=== PATIENT | female | born 1965 | race Caucasian/White ===

== ENCOUNTER 2025-05-09 15:14 | Outpatient (AMB) | payer MEDICARE, MEDICAID, SELFPAY ==
--- OUTSIDE RECORDS SUMMARY | 2021-02-22 11:20 | XMS_ITS | Continuity of Care Document ---
Author Organization [facility] Address [address] [address] Phone Care Team Providers Care Cutting And Splicing Supervisor Name Role Phone Leesa MCCULLOUGH, HANSEL, Jena Unavailable Unavail able Advance Directives Directive Yes / No Effective Date File Name No Information Encounters Encounter Description Practice Location Reason(s) For Visit Diagnoses Date Provider [facility], [address] [address], [place], [place], [id number], [place] tel:[phone] [facility] No Information [address] [place], [address]. tel:[phone] Family History Family Member Type Diagnosis Age At Onset No Information Payers Payer name Insurance type Covered republican ID Authoriza tion(s) No Information Social History Type Description Quantity Date Captured Comments Sex Female Smoking Status No Information Chief Complaint And Reason For Visit No Information History Of Present Illness Encounter Date Complaint History Of Prese nt Illness No Information Instructions Date Instruction Additional Infor mation No Information Assessments Type Assessment Date No Information
--- OUTSIDE RECORDS SUMMARY | 2025-05-05 14:00 | XMS_ITS | Encounter Summary ---
Author Organization [facility] Address [address] [place] [address] Care Team Providers Care Revenue Specialist Name Role Phone Salma Naik MD Primary Care Provider [phone] Reason for Referral * Imaging (Routine) - Authorized Specialty Diagnoses / Procedures Referred By Contac t Referred To Contact Radiology Diagnoses Lung nodules Enlargement of lymph node Procedures CT Chest w Contrast Loly Duggan MD Phone: tel: fax: [address] Phone: tel: Referral ID Status Reason Start Date Expiration Date V isits Requested Visits Authorized [id number] Authorized 03/29/2025 03/29/2026 1 1 Reason for Visit * Imaging (Routine) - Authorized Specialty Diagnoses / Procedures Referred By Contac t Referred To Contact Radiology Diagnoses Lung nodules Enlargement of lymph node Procedures CT Chest w Contrast Loly Duggan MD Phone: tel: fax: [address] Phone: tel: Referral ID Status Reason Start Date Expiration Date V isits Requested Visits Authorized [id number] Authorized 03/29/2025 03/29/2026 1 1 Encounter Details Date Type Department Care Team (Latest Contact Info) Description 05/05/2025 2:00 PM EDT - 05/05/2025 11:59 PM EDT Hospital Encounter [facility] CT Scan [address] [place] [address] Lung nodules; Enlargement of lymph node Discharge Disposition: Home or Self Care Social History Tobacco Use Types Packs/Day Years Used Date Smoking Tobacco: Former Passive Smoke Exposure: Past Smokeless Tobacco: Former Alcohol Use Standard Drinks/Week Comments Not Currently 0 (1 standard drink = 0.6 oz pur e alcohol) Comments No Sex and Gender Information Value Date Recorded Sex Assigned at Not on file Legal Sex Female 9:20 AM EST Gender Identity Not on file Sexual Orientation Not on file documented as of this encounter Medications at Time of Discharge acetaminophen (TYLENOL 8 HOUR) 650 mg 8 hr tablet Take 1 tablet (650 mg total) by mouth every 8 (eight) hours if needed for mild pain. for pain 90 tablet 1 5 aluminum-magnesi um hydroxide-simeth icone (MAALOX MAX) 400-400-40 mg/5 mL suspension Take 5 mL by mouth 1 (one) time each day in the morning. 355 mL 4 5 aspirin 81 mg EC tablet Take 1 tablet (81 mg total) by mouth 1 (one) time each day in the morning. 90 tablet 1 5 Austedo XR 6 mg tablet extended release 24 hr take 1 tablet by mouth once daily in the am 5 bisacodyL (DULCOLAX) 10 mg suppository Insert 1 suppository (10 mg total) into the rectum 1 (one) time if needed for constipation for up to 12 doses. 12 suppository 5 blood sugar diagnostic (True Metrix Glucose Test Strip) test stripIndications :Type 2 diabetes mellitus without complication, without long-term current use of insulin ([facility] V24, [facility] V28) E11.9 Use to test blood sugars once a day 100 each 3 5 02/14/20 26 blood-glucose meter (True Metrix Glucose Meter) miscIndications: Type 2 diabetes mellitus without complication, without long-term current use of insulin ([facility] V24, [facility] V28) E11.9 Used to check sugars once daily 1 each 5 calcium carb-mag hydrox-simeth (Mylanta Coat-Cool) 1,200 mg-270 mg -80 mg/10 mL suspension Take 5 mL by mouth. 4 cetirizine (ZyrTEC) 10 mg tablet Take 1 tablet (10 mg total) by mouth 1 (one) time each day. 90 tablet 1 5 clonazePAM (KlonoPIN) 0.5 mg tablet 3 clotrimazole (LOTRIMIN) 1 % cream Apply to skin and toenails daily for 12 weeks 4 cloZAPine (CLOZARIL) 100 mg tablet Take 1.5 tablets (150 mg total) by mouth at bedtime. cranberry fruit concentrate 125 mg tablet,disintegr ating Take by mouth. 4 Desitin Daily Defense 13 % cream Apply topically once daily to affected areas as needed to provide skin protection 60 g 3 5 docusate sodium (COLACE) 100 mg capsule Take 1 capsule (100 mg total) by mouth 2 (two) times a day. 180 capsule 1 5 FLUoxetine (PROzac) 10 mg capsule Take 1 capsule by mouth every morning with meals 4 freestyle 28 gauge lancetsIndicatio ns:Type 2 diabetes mellitus without complication, without long-term current use of insulin ([facility] V24, [facility] V28) Use to test blood sugars once a day. Lancets to be dispensed for the True Metrix Glucose Meter.E11.9 100 each 3 5 09/14/19 26 glipiZIDE (GLUCOTROL) 5 mg tablet TAKE 1/2 TABLET BY MOUTH EVERY MORNING BEFORE BREAKFAST 15 tablet 5 5 guaiFENesin (ROBITUSSIN) 100 mg/5 mL liquid Take 10 mL (200 mg total) by mouth 3 (three) times a day if needed for cough. 900 mL 3 4 hydrOXYzine HCL (ATARAX) 25 mg tablet Take 1 tablet (25 mg total) by mouth 1 (one) time each day if needed. insulin glargine (LANTUS) 100 unit/mL injection Inject 10 Units under the skin 1 (one) time each day in the morning. levothyroxine (SYNTHROID, LEVOTHROID) 150 mcg tablet Take 1 tablet (150 mcg total) by mouth 1 (one) time each day before breakfast. 90 tablet 1 5 magnesium hydroxide (Milk of Magnesia) 400 mg/5 mL suspension Take 15 mL by mouth daily as needed for Constipation. 355 mL 5 metFORMIN (GLUCOPHAGE) 500 mg tablet Take 1 tablet by mouth twice a day 180 tablet 1 5 methenamine hippurate (HIPREX) 1 gram tablet TAKE 1 TABLET BY MOUTH TWICE DAILY 180 tablet 1 5 nystatin, bulk, 10 billion unit powder Apply to affected area of skin twice dialy as needed for rash. 4 pen needle, diabetic (BD Ultra-Fine Short Pen Needle) 31 gauge x 5/16 needle Use to inject 4 times daily as directed 100 each 5 5 polyethylene glycol (MIRALAX) 17 gram packet mix 1 PACKET into 8 OUNCE OF WATER OR beverage AND TAKE BY MOUTH daily IN THE am 90 packet 1 5 simethicone (MYLICON) 80 mg chewable tablet Chew 1 tablet (80 mg total) 3 (three) times a day if needed for flatulence. 4 sodium chloride 3 % nebulizer solution Take 4 mL by nebulization if needed for cough. umeclidinium-aftab anteroL (Anoro Ellipta) 62.5-25 mcg/actuation inhalerIndicatio ns:Chronic obstructive pulmonary disease, unspecified COPD type (CMS/HCC V24, CMS/HCC V28) Inhale 1 puff by mouth 1 (one) time each day. 3 each 3 5 09/07/19 26 vit A,C and K-ttprcf-fkuugnj s (OCUVITE) 300 mcg-200 mg-27 mg-2 mg tablet Take 1,000 mg by mouth 1 (one) time each day. Vit C only 4 documented as of this encounter Discharge Disposition Disposition Code Departure Means Destination Home or Self Care documented in this encounter Plan of Treatment Upcoming Encounters Date Type Department Care Team ([facility] st Contact Info) Description 06/02/2025 1:00 PM EDT Office Visit Adult Medicine [address] [place] [phone] Salma Naik MD [address] [place] [address] 07/05/2025 1:15 PM EST Office Visit Orthopedic Surgery [place] [address] [address] Bossman Higginbotham DPKeren [address] [phone] 07/06/2025 8:30 AM EST Office Visit Adult Medicine [address] [phone] Tyler Edwards PA [address] [place] [address] 09/29/2025 2:00 PM EST Office Visit Pulmonology - [place] [address] [phone] Loly Duggan MD [address] [address] Pending Results Name Type Priority Associated Diagnoses Date /Time CT Chest w Contrast Imaging Routine Lung nodules Enlargement of lymph node 05/05/2025 2:44 PM EDT Scheduled Orders Name Type Priority Associated Diagnoses Orde r Schedule CT Chest w Contrast Imaging Routine Lung nodules Enlargement of lymph node Once for 1 Occurrences starting 05/05/2025 until 05/05/2025 documented as of this encounter Visit Diagnoses Diagnosis Lung nodules Other diseases of lung, not elsewhere classified Enlargement of lymph node Enlargement of lymph nodes documented in this encounter Administered Medications Inactive Administered Medications - up to 3 most recent administrations Medication Order MAR Action Action Date Dose Rate Site iopamidoL (ISOVUE-370) 370 mg iodine /mL (76 %) injection 90 mL 90 mL, intravenous, Once in imaging, Starting on Thu05/05/25 at 1425, For 1 dose Given 05/05/2025 2:25 PM EDT 75 mL sodium chloride 0.9 % flush 10 mL 10 mL, intravenous, Once, On Thu05/05/25 at 1445, For 1 dose Given 05/05/2025 2:25 PM EDT 10 mL documented in this encounter Additional Health Concerns Infection Onset Date Last Indicated Resolved Time ESBL 01/04/2025 01/18/2025 documented as of this encounter Care Teams Revenue Specialist Relationship Specialty Start Date End Date Salma Naik MD [address] [place] [phone] PCP - General Internal Medicine 12/02/22 documented as of this encounter
--- NOTE | 2025-05-09 15:22 | MHC.OFFVIS ---
Intake Visit Reasons: follow up Allergies No Known Allergies Allergy (Unverified 04/19/20 16:15) HPI Comments Details: 59 yo woman with diagnosis of schizoaffective disorder for decades with exposure to antipsychotics including thorazine was here for management of tradive dyskinesia. Med was helping w/o side effects. No new issues. COUNT INCLUDES [facility] Medical History (Updated 05/09/25 @ 15:23 by Yesenia Spicer MD) Tardive dyskinesia Seizure disorder Review of Systems Const Details: No significant dizziness or lightheadedness. Physical Exam Neuro Other: Mental Status: She is alert and awake with decreased spontaneity and fluency of speech. Affect is okay. Cranial Nerves: CN II: Visual erwin full to confrontation, visual acuity intact. CN III, IV, : Pupils equal, round, reactive to light and accommodation. Extraocular movements are normal. CN V: Facial sensation is normal. CN VII: Facial movements symmetrical. CN VIII: Hearing intact to bedside conversation is normal. CN IX, X: Palate elevates symmetrically. CN XI: Shoulder shrug and head turn symmetrical. CN XII: Tongue midline without atrophy or fasciculations. She is in a wheelchair. She has minimal oral buccal dyskinetic movements. Speech: Normal; no dysarthria or tremor. Assessment & Plan Assessment & Plan (1) Tardive dyskinesia: Code(s): G24.01 - Drug induced subacute dyskinesia Category: Medical Plan 59 years old woman with psychiatric disease treated now with clozapine and tardive dyskinesia that was better with treatment with Austedo. 6 mg of this medicine was continued and I would see her back in 6 months' time. Medications: Refilled deutetrabenazine ER (Austedo XR) 6 mg PO DAILY 90 tabs 1RF Coding Level of Care Code Est Pt Level 3 (18089) Diagnoses Tardive dyskinesia G24.01
--- OUTSIDE RECORDS SUMMARY | 2025-05-09 18:27 | XMS_ITS | Encounter Summary ---
Author Organization [facility] Address [address] [place] [address] Care Team Providers Care Well Flow Operator Name Role Phone Salma Naik MD Primary Care Provider [phone] Encounter Details Date Type Department Care Team (Late Contact Info) Description 01/26/2025 Lab Requisition [facility] - Main Lab [address] [facility] [place] [address] Manny Sanchez MD [address] [place] [address] Encounter for therapeutic drug level monitoring; Essential (primary) hypertension Social History Tobacco Use Types Packs/Day Years [...] on file documented as of this encounter Plan of Treatment Upcoming Encounters Date Type Department Care Team (Late Contact Info) Description 06/02/2025 1:00 PM EDT Office Visit Adult Medicine [address] [phone] Salma Naik MD [address] [place] [phone] 07/05/2025 1:15 PM EST Office Visit Orthopedic Surgery - [place] [address] [facility] 250 [place] [phone] Bossman Higginbotham DPM 175 [facility] [address] [place] [phone] 07/06/2025 8:30 AM EST Office Visit Adult Medicine [facility] [place] [address] [place] [address] Tyler Edwards PA [address] [place] [address] 09/29/2025 2:00 PM EST Office Visit Pulmonology - [place] 175 [facility] 200 [place] [phone] Loly Duggan MD 175 [facility] 200 [place] [address] documented as of this encounter Procedures Procedure Name Priority Date/Time Associated Diagnosis Comments CBC WITH AUTO DIFFERENTIAL Routine 01/27/2025 4:41 AM EDT Essential (primary) hypertension CBC AND DIFFERENTIAL Routine 01/27/2025 4:41 AM EDT Essential (primary) hypertension VALPROIC ACID LEVEL, TOTAL Routine 01/27/2025 4:41 AM EDT Encounter for therapeutic drug level monitoring BASIC METABOLIC PANEL Routine 01/27/2025 4:41 AM EDT Essential (primary) hypertension documented in this encounter Results * (ABNORMAL) CBC auto differential (01/27/2025 4:41 AM EDT) [facility] WBC 8.2 4.8 - 10.8 K/[facility] LAB HEMETOLOGY METHOD 01/27/2025 9:05 AM EDT [facility] ([facility]) [facility] LAB RBC 4.80 3.80 - 4.80 M/[facility] LAB HEMETOLOGY METHOD 01/27/2025 9:05 AM [facility] Hemoglobin 14.1 11.5 - 16.0 g/dL LAB HEMETOLOGY METHOD 01/27/2025 9:05 AM [facility] Hematocrit 45.7 35.0 - 47.0 % LAB HEMETOLOGY METHOD 01/27/2025 9:05 AM [facility] MCV 95.0 79.0 - 98.0 FL LAB HEMETOLOGY METHOD 01/27/2025 9:05 AM [facility] MCH 29.3 27.0 - 32.0 pcg LAB HEMETOLOGY METHOD 01/27/2025 9:05 AM [facility] MCHC 30.9(L) 32.0 - 37.0 g/dL LAB HEMETOLOGY METHOD 01/27/2025 9:05 AM [facility] RDW 14.0 11.0 - 15.0 % LAB HEMETOLOGY METHOD 01/27/2025 9:05 AM [facility] Platelets 271 130 - 400 K/mcL LAB HEMETOLOGY METHOD 01/27/2025 9:05 AM [facility] MPV 12.4(H) 7.0 - 11.0 FL LAB HEMETOLOGY METHOD 01/27/2025 9:05 AM [facility] NRBC 0.0 <1.0 % LAB HEMETOLOGY METHOD 01/27/2025 9:05 AM [facility] NRBC Absolute 0.00 <0.10 K/mcL LAB HEMETOLOGY METHOD 01/27/2025 9:05 AM [facility] Neutrophils Relative 59.3 % LAB HEMETOLOGY METHOD 01/27/2025 9:05 AM [facility] Lymphocytes Relative 28.8 % LAB HEMETOLOGY METHOD 01/27/2025 9:05 AM [facility] Monocytes Relative 7.9 % LAB HEMETOLOGY METHOD 01/27/2025 9:05 AM [facility] Eosinophils Relative 2.2 % LAB HEMETOLOGY METHOD 01/27/2025 9:05 AM [facility] Basophils Relative 0.9 % LAB HEMETOLOGY METHOD 01/27/2025 9:05 AM [facility] Immature Granulocytes Relative 0.9 % LAB HEMETOLOGY METHOD 01/27/2025 9:05 AM [facility] Neutrophils Absolute 4.87 1.50 - 7.00 K/mcL LAB HEMETOLOGY METHOD 01/27/2025 9:05 AM [facility] Lymphocytes Absolute 2.36 1.00 - 5.00 K/mcL LAB HEMETOLOGY METHOD 01/27/2025 9:05 AM [facility] Monocytes Absolute 0.65 0.20 - 1.00 K/mcL LAB HEMETOLOGY METHOD 01/27/2025 9:05 AM [facility] Eosinophils Absolute 0.18 0.00 - 0.50 K/mcL LAB HEMETOLOGY METHOD 01/27/2025 9:05 AM [facility] Basophils Absolute 0.07 0.00 - 0.20 K/mcL LAB HEMETOLOGY METHOD 01/27/2025 9:05 AM [facility] Immature Granulocytes Absolute 0.07(H) 0.00 - 0.03 K/mcL LAB HEMETOLOGY METHOD 01/27/2025 9:05 AM [facility] Blood Venous blood specimen / Unknown Venipuncture / Unknown 01/27/2025 4:41 AM EDT 01/27/2025 8:34 AM EDT us Manny Sanchez MD LAB BLOOD ORDERABLES Final Resul t [facility] [address] [place] [address], [place] [phone] * (ABNORMAL) Basic metabolic panel (01/27/2025 4:41 AM EDT) Sodium 145 133 - 145 mmol/L LAB CHEMISTRY METHOD 01/27/2025 9:38 AM [facility] Potassium 4.2 3.5 - 5.5 mmol/L LAB CHEMISTRY METHOD 01/27/2025 9:38 AM [facility] Chloride 108 96 - 110 mmol/L LAB CHEMISTRY METHOD 01/27/2025 9:38 AM [facility] CO2 28 21 - 32 mmol/L LAB CHEMISTRY METHOD 01/27/2025 9:38 AM [facility] Anion Gap 9 3 - 11 LAB CHEMISTRY METHOD 01/27/2025 9:38 AM [facility] Glucose 103(H) 70 - 100 mg/dL LAB CHEMISTRY METHOD 01/27/2025 9:38 AM [facility] BUN 10 5 - 25 mg/dL LAB CHEMISTRY METHOD 01/27/2025 9:38 AM [facility] Creatinine 0.37(L) 0.50 - 1.10 mg/dL LAB CHEMISTRY METHOD 01/27/2025 9:38 AM [facility] eGFR 116 >=60 mL/min/1. 73m2 LAB CHEMISTRY METHOD 01/27/2025 9:38 AM [facility] Comment:Calculation based on the Chronic Kidney Disease Epidemiology Collaboration (CKD-EPI) equation refit without adjustment for race. BUN/Creatinine Ratio 27.0 LAB CHEMISTRY METHOD 01/27/2025 9:38 AM [facility] Calcium 9.6 8.5 - 10.5 mg/dL LAB CHEMISTRY METHOD 01/27/2025 9:38 AM [facility] Blood Venous blood specimen / Unknown Venipuncture / Unknown 01/27/2025 4:41 AM EDT 01/27/2025 8:34 AM EDT us Manny Sanchez MD LAB BLOOD ORDERABLES Final Resul t Performing Organization Address [facility]/ZIP Co de Phone Number [facility] [address] [place] [address], [place] [phone] * Valproic acid level, total (01/27/2025 4:41 AM EDT) Valproic Acid, Total 64 50 - 100 mcg/mL LAB CHEMISTRY METHOD 01/27/2025 9:38 AM EDT [facility] Blood Venous blood specimen / Unknown Venipuncture / Unknown 01/27/2025 4:41 AM EDT 01/27/2025 8:34 AM EDT us Manny Sanchez MD LAB BLOOD ORDERABLES Final Resul t Performing Organization Address [facility] de Phone Number [facility] [address] [place] [address], [place] [phone] documented in this encounter Visit Diagnoses Diagnosis Encounter for therapeutic drug level monitoring Essential (primary) hypertension Unspecified essential hypertension documented in this encounter Additional Health Concerns Infection Onset Date Last Indicated Resolved Time ESBL 01/04/2025 01/18/2025 documented as of this encounter Care Teams Well Flow Operator Relationship Specialty Start Date End Date Salma Naik MD [address] [place] [phone] PCP - General Internal Medicine 12/02/22 documented as of this encounter
--- OUTSIDE RECORDS SUMMARY | 2025-05-09 18:27 | XMS_ITS | Encounter Summary ---
Author Organization [facility] Address [address] [place] [address] Care Team Providers Care House Piping Inspector Name Role Phone Salma Naik MD Primary Care Provider Encounter Details Date Type Department Care Team (Late Contact Info) Description 01/20/[address] [facility] - Main Lab 299 [facility] [place] [address] Manny Sanchez MD [address] [place] [address] Essential (primary) hypertension Social History Tobacco Use [...] 1:00 PM EDT Office Visit Adult Medicine [address] [phone] Salma Naik MD [address] [place] [address] 07/05/2025 1:15 PM EST Office Visit Orthopedic Surgery - [place] 250 175 [facility] 250 [place] [phone] Bossman Higginbotham, BERE 175 [facility] 250 [place] [phone] 07/06/2025 8:30 AM EST Office Visit Adult Medicine [facility] [address] [place] [address] Tyler Edwards PA 444 [place] [address] 09/29/2025 2:00 PM EST Office Visit Pulmonology - [place] 175 [facility] 200 [place] [phone] Loly Duggan MD 175 [facility] 200 [place] [address] documented as of this encounter Procedures Procedure Name Priority Date/Time Associated Diagnosis Comments CBC WITH AUTO DIFFERENTIAL Routine 01/21/2025 5:49 AM EDT Essential (primary) hypertension CBC AND DIFFERENTIAL Routine 01/21/2025 5:49 AM EDT Essential (primary) hypertension BASIC METABOLIC PANEL Routine 01/21/2025 5:49 AM EDT Essential (primary) hypertension documented in this encounter Results * (ABNORMAL) CBC auto differential (01/21/2025 5:49 AM EDT) [facility] WBC 10.5 4.8 - 10.8 K/mcL LAB HEMETOLOGY METHOD 01/21/2025 8:53 AM EDT [facility] RBC 4.40 3.80 - 4.80 M/mcL LAB HEMETOLOGY METHOD 01/21/2025 8:53 AM EDT [facility] Hemoglobin 12.9 11.5 - 16.0 g/dL LAB [facility] Hematocrit 40.5 35.0 - 47.0 % LAB HEMETOLOGY METHOD 01/21/2025 8:53 AM [facility] MCV 92.9 79.0 - 98.0 FL LAB HEMETOLOGY METHOD 01/21/2025 8:53 AM [facility] MCH 29.6 27.0 - 32.0 pcg LAB HEMETOLOGY METHOD 01/21/2025 8:53 AM [facility] MCHC 31.9(L) 32.0 - 37.0 g/dL LAB HEMETOLOGY METHOD 01/21/2025 8:53 AM [facility] RDW 14.6 11.0 - 15.0 % LAB HEMETOLOGY METHOD 01/21/2025 8:53 AM [facility] Platelets 277 130 - 400 K/mcL LAB HEMETOLOGY METHOD 01/21/2025 8:53 AM [facility] MPV 11.4(H) 7.0 - 11.0 FL LAB HEMETOLOGY METHOD 01/21/2025 8:53 AM [facility] NRBC 0.0 <1.0 % LAB HEMETOLOGY METHOD 01/21/2025 8:53 AM [facility] NRBC Absolute 0.00 <0.10 K/mcL LAB HEMETOLOGY METHOD 01/21/2025 8:53 AM [facility] Neutrophils Relative 61.5 % LAB HEMETOLOGY METHOD 01/21/2025 8:53 AM [facility] Lymphocytes Relative 30.0 % LAB HEMETOLOGY METHOD 01/21/2025 8:53 AM [facility] Monocytes Relative 5.4 % LAB HEMETOLOGY METHOD 01/21/2025 8:53 AM [facility] Eosinophils Relative 1.7 % LAB HEMETOLOGY METHOD 01/21/2025 8:53 AM EDT [facility] Basophils Relative 0.5 % LAB HEMETOLOGY METHOD 01/21/2025 8:53 AM EDT [facility] Immature Granulocytes Relative 0.9 % LAB HEMETOLOGY METHOD 01/21/2025 8:53 AM EDT [facility] Neutrophils Absolute 6.45 1.50 - 7.00 K/mcL LAB HEMETOLOGY METHOD 01/21/2025 8:53 AM EDT [facility] Lymphocytes Absolute 3.14 1.00 - 5.00 K/mcL LAB HEMETOLOGY METHOD 01/21/2025 8:53 AM EDT [facility] Monocytes Absolute 0.57 0.20 - 1.00 K/mcL LAB HEMETOLOGY METHOD 01/21/2025 8:53 AM EDT [facility] Eosinophils Absolute 0.18 0.00 - 0.50 K/mcL LAB HEMETOLOGY METHOD 01/21/2025 8:53 AM EDT [facility] Basophils Absolute 0.05 0.00 - 0.20 K/mcL LAB HEMETOLOGY METHOD 01/21/2025 8:53 AM EDT [facility] Immature Granulocytes Absolute 0.09(H) 0.00 - 0.03 K/mcL LAB HEMETOLOGY METHOD 01/21/2025 8:53 AM EDT [facility] Blood Venous blood specimen / Unknown Venipuncture / Unknown 01/21/2025 5:49 AM EDT 01/21/2025 8:24 AM EDT us Manny Sanchez MD LAB BLOOD ORDERABLES Final Resul t [facility] [address] [place] [address], * (ABNORMAL) Basic metabolic panel (01/21/2025 5:49 AM EDT) Sodium 142 133 - 145 mmol/L LAB CHEMISTRY METHOD 01/21/2025 8:58 AM [facility] Potassium 4.6 3.5 - 5.5 mmol/L LAB CHEMISTRY METHOD 01/21/2025 8:58 AM [facility] Chloride 106 96 - 110 mmol/L LAB CHEMISTRY METHOD 01/21/2025 8:58 AM [facility] CO2 32 21 - 32 mmol/L LAB CHEMISTRY METHOD 01/21/2025 8:58 AM [facility] Anion Gap 4 3 - 11 LAB CHEMISTRY METHOD 01/21/2025 8:58 AM [facility] Glucose 120(H) 70 - 100 mg/dL LAB CHEMISTRY METHOD 01/21/2025 8:58 AM [facility] BUN 12 5 - 25 mg/dL LAB CHEMISTRY METHOD 01/21/2025 8:58 AM [facility] Creatinine 0.42(L) 0.50 - 1.10 mg/dL LAB CHEMISTRY METHOD 01/21/2025 8:58 AM [facility] eGFR 112 >=60 mL/min/1. 73m2 LAB CHEMISTRY METHOD 01/21/2025 8:58 AM [facility] Comment:Calculation based on the Chronic Kidney Disease Epidemiology Collaboration (CKD-EPI) equation refit without adjustment for race. BUN/Creatinine Ratio 28.6 LAB CHEMISTRY METHOD 01/21/2025 8:58 AM [facility] Calcium 9.3 8.5 - 10.5 mg/dL LAB CHEMISTRY METHOD 01/21/2025 8:58 AM [facility] Blood Venous blood specimen / Unknown Venipuncture / Unknown 01/21/2025 5:49 AM EDT 01/21/2025 8:24 AM EDT Manny Sanchez MD LAB BLOOD ORDERABLES Final Resul t [facility] [address] [place] [address], documented in this encounter Visit Diagnoses Diagnosis Essential (primary) hypertension Unspecified essential hypertension documented in this encounter Additional Health Concerns Infection Onset Date Last Indicated Resolved Time ESBL 01/04/2025 01/18/2025 documented as of this encounter Care Teams House Piping Inspector Relationship Specialty Start Date End Date Salam Naik MD 4 [place] [address] PCP - General Internal Medicine 12/02/22 documented as of this encounter
--- OUTSIDE RECORDS SUMMARY | 2025-05-09 18:27 | XMS_ITS | Encounter Summary ---
Author Organization Address [address] [place] [address] Care Team Providers Care Hvac Sales Engineer Name Role Phone Salma Naik MD Primary Care Provider [phone] Encounter Details Date Type Department Care Team (Late Contact Info) Description 01/19/2025 Lab Requisition [facility] - Main Lab 299 [facility] [place] [address] Manny Sanchez MD [address] [place] [address] Systemic inflammatory response syndrome (sirs) of non-infectious origin without acute organ dysfunction (CMS/HCC V24, CMS/HCC V28); Urinary tract infection, site not specified Social History Tobacco Use Types Packs/Day Years [...] 1:00 PM EDT Office Visit Adult Medicine [address] [phone] Salma Naik MD [address] [place] [address] 07/05/2025 1:15 PM EST Office Visit Orthopedic Surgery - [place] 250 175 [facility] 250 [place] [phone] Bossman Higginbotham DPM 175 [facility] 250 [place] [phone] 07/06/2025 8:30 AM EST Office Visit Adult Medicine [facility] [place] 444 [place] [address] Tyler Edwards PA 444 [place] [address] 09/29/2025 2:00 PM EST Office Visit Pulmonology - [place] 175 [facility] 200 [place] [phone] Loly Duggan MD 175 [facility] 200 [place] [address] documented as of this encounter Procedures Procedure Name Priority Date/Time Associated Diagnosis Comments URINALYSIS WITH REFLEX MICROSCOPIC AND CULTURE Routine 01/18/2025 2:35 PM EDT Systemic inflammatory response syndrome (sirs) of non-infectious origin without acute organ dysfunction (CMS/HCC V24, CMS/HCC V28) Urinary tract infection, site not specified URINALYSIS WITH REFLEX MICROSCOPIC AND CULTURE Routine 01/18/2025 2:35 PM EDT Systemic inflammatory response syndrome (sirs) of non-infectious origin without acute organ dysfunction (CMS/HCC V24, CMS/HCC V28) Urinary tract infection, site not specified CULTURE URINE Routine 01/18/2025 2:35 PM EDT Systemic inflammatory response syndrome (sirs) of non-infectious origin without acute organ dysfunction (CMS/HCC V24, CMS/HCC V28) Urinary tract infection, site not specified documented in this encounter Results * (ABNORMAL) Culture urine (01/18/2025 2:35 PM EDT) Culture, Urine >100,000 CFU/mL Escherichia coli ESBL(A) CAROLINE 01/22/2025 7:06 AM EDT [facility] Comment: THIS ORGANISM IS POSITIVE FOR EXTENDED SPECTRUM BETA-LACTAMASE (ESBL). EXTENDED SPECTRUM BETA-LACTAMASE PRODUCING ORGANISMS DEMONSTRATE DECREASED ACTIVITY WITH PENICILLILNS, CEPHALOSPORINS AND AZTREONAM. This is an edited result. Previous organism was Gram negative bacilli on 01/21/2025 at 1026 EDT. Culture, Urine 10,000-49,000 CFU/mL Pseudomonas aeruginosa(A) CAROLINE 01/22/2025 7:06 AM EDT [facility] Comment: The organism value for this result has been updated. These results have been appended to the previously preliminary verified report. Urine Indwelling urinary catheter / Unknown Non-blood Collection / Unknown 01/18/2025 2:35 PM EDT 01/19/2025 9:55 AM EDT Narrative Organism Antibiotic Method Susceptibility Escherichia coli ESBL Amoxicillin/Clavulanate CAROLINE 4 ug/ml: Susceptible Escherichia coli ESBL Ampicillin/Sulbactam CAROLINE 16 ug/ml: Intermediate Escherichia coli ESBL Piperacillin/Tazobactam CAROLINE <=4 ug/ml: Susceptible Escherichia coli ESBL Cefazolin (Urine) CAROLINE >=32 ug/ml: Resistant Escherichia coli ESBL Cefoxitin CAROLINE <=4 ug/ml: Susceptible Escherichia coli ESBL Ceftazidime CAROLINE 16 ug/ml: Resistant Escherichia coli ESBL Ceftriaxone CAROLINE >=64 ug/ml: Resistant Escherichia coli ESBL Cefepime CAROLINE >=32 ug/ml: Resistant Escherichia coli ESBL Meropenem CAROLINE <=0.25 ug/ml: Susceptible Escherichia coli ESBL Amikacin CAROLINE 4 ug/ml: Susceptible Escherichia coli ESBL Gentamicin CAROLINE <=1 ug/ml: Susceptible Escherichia coli ESBL Ciprofloxacin CAROLINE >=4 ug/ml: Resistant Escherichia coli ESBL Levofloxacin CAROLINE >=8 ug/ml: Resistant Escherichia coli ESBL Nitrofurantoin CAROLINE <=16 ug/ml: Susceptible Escherichia coli ESBL Trimethoprim/Sulfa methoxazol e CAROLINE >=320 ug/ml: Resistant Pseudomonas aeruginosa Piperacillin/Tazobactam CAROLINE 8 ug/ml: Susceptible Pseudomonas aeruginosa Ceftazidime CAROLINE 2 ug/ml: Susceptible Pseudomonas aeruginosa Cefepime CAROLINE 2 ug/ml: Susceptible Pseudomonas aeruginosa Meropenem CAROLINE <=0.25 ug/ml: Susceptible Pseudomonas aeruginosa Amikacin CAROLINE 4 ug/ml: Susceptible Pseudomonas aeruginosa Ciprofloxacin CAROLINE 0.12 ug/ml: Susceptible Pseudomonas aeruginosa Levofloxacin CAROLINE 0.5 ug/ml: Susceptible Manny Sanchez MD LAB MICROBIOLOGY - GENERAL ORDER CEZAR Final Result [facility] [address] [place] [address], [place] [phone] * (ABNORMAL) Urinalysis with reflex microscopic and culture (01/18/2025 2:35 PM EDT) Specific [place] Urine 1.018 1.003 - 1.030 LAB URINALYSIS - AUTOMATED METHOD 01/19/2025 9:55 AM [facility] pH, Urine 8.5(A) 5.0 - 8.0 pH LAB URINALYSIS - AUTOMATED METHOD 01/19/2025 9:55 AM [facility] Leukocytes, Urine Moderate(A) Negative LAB URINALYSIS - AUTOMATED METHOD 01/19/2025 9:55 AM [facility] Nitrite, Urine Negative Negative LAB URINALYSIS - AUTOMATED METHOD 01/19/2025 9:55 AM [facility] Protein, Urine 30(A) <=Trace mg/dL LAB URINALYSIS - AUTOMATED METHOD 01/19/2025 9:55 AM [facility] Glucose, Urine Negative Negative mg/dL LAB URINALYSIS - AUTOMATED METHOD 01/19/2025 9:55 AM [facility] Ketones, Urine Negative Negative mg/dL LAB URINALYSIS - AUTOMATED METHOD 01/19/2025 9:55 AM [facility] Urobilinogen , Urine 1.0 0.2 - 1.0 mg/dL LAB URINALYSIS - AUTOMATED METHOD 01/19/2025 9:55 AM [facility] Bilirubin, Urine Negative Negative LAB URINALYSIS - AUTOMATED METHOD 01/19/2025 9:55 AM EDT [facility] Blood, Urine Moderate(A) Negative LAB URINALYSIS - AUTOMATED METHOD 01/19/2025 9:55 AM [facility] RBC, Urine 42.0(H) 0 - 4 /HPF LAB URINALYSIS - AUTOMATED METHOD 01/19/2025 9:55 AM [facility] WBC, Urine 40.9(H) 0 - 4 /HPF LAB URINALYSIS - AUTOMATED METHOD 01/19/2025 9:55 AM [facility] Squamous Epithelial, Urine 37 0 - 60 /LPF LAB URINALYSIS - AUTOMATED METHOD 01/19/2025 9:55 AM [facility] Bacteria, Urine Few(A) Negative /HPF LAB URINALYSIS - AUTOMATED METHOD 01/19/2025 9:55 AM [facility] Hyaline Casts, Urine 12.4(H) 0 - 3 /LPF LAB URINALYSIS - AUTOMATED METHOD 01/19/2025 9:55 AM [facility] Urine Urine specimen obtained by clean catch procedure / Unknown Non-blood Collection / Unknown 01/18/2025 2:35 PM EDT 01/19/2025 9:26 AM EDT us Manny Sanchez MD LAB URINE ORDERABLES Final Resul t [facility] [address] [place] [address], documented in this encounter Visit Diagnoses Diagnosis Systemic inflammatory response syndrome (sirs) of non-infectious origin without acute organ dysfunction (CMS/HCC V24, CMS/[facility] V28) Urinary tract infection, site not specified documented in this encounter Additional Health Concerns Infection Onset Date Last Indicated Resolved Time ESBL 01/04/2025 01/18/2025 documented as of this encounter Care Teams Hvac Sales Engineer Relationship Specialty Start Date End Date Salma Naik MD 4 [place] [address] PCP - General Internal Medicine 12/02/22 documented as of this encounter
--- OUTSIDE RECORDS SUMMARY | 2025-05-09 18:27 | XMS_ITS | Encounter Summary ---
Author Organization [facility] Address [address] [place] [address] Care Team Providers Care Card Services Specialist Name Role Phone Salma Naik MD Primary Care Provider [phone] Reason for Visit * Reason Onset Date Comments Fitting for DME 04/25/2025 Shower Chair Encounter Details Date Type Department Care Team (Late st Contact Info) Description 04/25/2025 Telephone Adult Medicine [address] [phone] Salma Naik MD [address] [place] [address] Social History Tobacco Use Types Packs/Day Years [...] on file documented as of this encounter Progress Notes * Geovany Santizo MA - 05/09/2025 1:59 PM EDT Pt has ov 06/02/2025 and looking for shower chair. Please advise if appropriate * Hugo Teixeira - 04/25/2025 10:56 AM EDT DME REQUEST Name of Product: Shower Chair # Needed 1 When completed: Fax to other office/MD/pharmacy at fax # [phone] Who is requested? Aileen Rubens Is this a fax request? YEs Have you told the patient it will take 7-10 days for completion of this request? No documented in this encounter Plan of Treatment Upcoming Encounters Date Type Department Care Team (Late st Contact Info) Description 06/02/2025 1:00 PM EDT Office Visit Adult Medicine [address] [phone] Salma Naik MD [address] [place] [address] 07/05/2025 1:15 PM EST Office Visit Orthopedic Surgery - [place] [address] [phone] Bossman Higginbotham DPM [address] [phone] 07/06/2025 8:30 AM EST Office Visit Adult Medicine [address] [phone] Tyler Edwards PA [address] [place] [address] 09/29/2025 2:00 PM EST Office Visit Pulmonology - [place] [address] [phone] Loly Duggan MD [address] [address] documented as of this encounter Visit Diagnoses Not on filedocumented in this encounter Additional Health Concerns Infection Onset Date Last Indicated Resolved Time ESBL 01/04/2025 01/18/2025 documented as of this encounter Care Teams Card Services Specialist Relationship Specialty Start Date End Date Gumaro, Salma, MD 4 [place] [address] PCP - General Internal Medicine 12/02/22 documented as of this encounter
--- OUTSIDE RECORDS SUMMARY | 2025-05-09 18:27 | XMS_ITS | Encounter Summary ---
Author Organization [facility] Address [address] [place] [address] Care Team Providers Care Infant Caregiver Name Role Phone Salma Naik MD Primary Care Provider Encounter Details Date Type Department Care Team (Late Contact Info) Description 01/05/2025 Lab Requisition [facility] - Main Lab 299 [facility] [place] [address] Manny Sanchez MD [address] [place] [address] Other reduced mobility Social History Tobacco Use Types Packs/Day Years [...] 1:00 PM EDT Office Visit Adult Medicine [address] [phone] Salma Naik MD [address] [place] [address] 07/05/2025 1:15 PM EST Office Visit Orthopedic Surgery - [place] [address] [place] [address] 250 [place] [phone] Bossman Higginbotham, DPM 175 [facility] 250 [place] [phone] 07/06/2025 8:30 AM EST Office Visit Adult Medicine [facility] 444 [place], [place] [phone] Tyler Edwards PA 444 [place], [place] 09/29/2025 2:00 PM EST Office Visit Pulmonology - [place] 175 [facility] 200 [place] [phone] Loly Duggan MD 175 [facility] 200 [place] [address] documented as of this encounter Visit Diagnoses Diagnosis Other reduced mobility documented in this encounter Additional Health Concerns Infection Onset Date Last Indicated Resolved Time ESBL 01/04/2025 01/18/2025 documented as of this encounter Care Teams Infant Caregiver Relationship Specialty Start Date End Date Salma Naik MD [address] [place] [address] PCP - General Internal Medicine 12/02/22 documented as of this encounter
--- OUTSIDE RECORDS SUMMARY | 2025-05-09 18:27 | XMS_ITS | Encounter Summary ---
Author Organization [facility] Address [address] [place] [address] Care Team Providers Care Orthodontic Technician Name Role Phone Salma Naik MD Primary Care Provider [phone] Encounter Details Date Type Department Care Team (Late Contact Info) Description 01/10/2025 Lab Requisition [facility] - Main Lab 299 [facility] [place] [address] Manny Sanchez MD [address] [place] [address] Systemic inflammatory response syndrome (sirs) of non-infectious origin without acute organ dysfunction (CMS/HCC V24, CMS/HCC V28) Social History Tobacco Use Types Packs/Day Years [...] 1:00 PM EDT Office Visit Adult Medicine [address] [phone] Salma Naik MD [address] [place] [address] 07/05/2025 1:15 PM EST Office Visit Orthopedic Surgery - [place] 250 175 [facility] 250 [place] [phone] Bossman Higginbotham DPM 175 [facility] 250 [phone] 07/06/2025 8:30 AM EST Office Visit Adult Medicine [facility] 444 [place] [address] Tyler Edwards PA 444 [place] [address] 09/29/2025 2:00 PM EST Office Visit Pulmonology - [place] 175 [facility] 200 [place] [phone] Loly Duggan MD [address] [facility] 200 [address] documented as of this encounter Procedures Procedure Name Priority Date/Time Associated Diagnosis Comments BASIC METABOLIC PANEL Routine 01/11/2025 6:03 AM EDT Systemic inflammatory response syndrome (sirs) of non-infectious origin without acute organ dysfunction (CMS/HCC V24, CMS/HCC V28) documented in this encounter Results * (ABNORMAL) Basic metabolic panel (01/11/2025 6:03 AM EDT) Sodium 140 133 - 145 mmol/L LAB CHEMISTRY METHOD 01/11/2025 1:02 PM EDT [facility] Potassium 4.2 3.5 - 5.5 mmol/L LAB CHEMISTRY METHOD 01/11/2025 1:02 PM [facility] Chloride 104 96 - 110 mmol/L LAB CHEMISTRY METHOD 01/11/2025 1:02 PM [facility] CO2 29 21 - 32 mmol/L LAB CHEMISTRY METHOD 01/11/2025 1:02 PM EDT [facility] Anion Gap 7 3 - 11 LAB CHEMISTRY METHOD 01/11/2025 1:02 PM EDT [facility] Glucose 73 70 - 100 mg/dL LAB CHEMISTRY METHOD 01/11/2025 1:02 PM EDT [facility] BUN 11 5 - 25 mg/dL LAB CHEMISTRY METHOD 01/11/2025 1:02 PM EDT [facility] Creatinine 0.31(L) 0.50 - 1.10 mg/dL LAB CHEMISTRY METHOD 01/11/2025 1:02 PM EDT [facility] eGFR 121 >=60 mL/min/1. 73m2 LAB CHEMISTRY METHOD 01/11/2025 1:02 PM EDT [facility] Comment:Calculation based on the Chronic Kidney Disease Epidemiology Collaboration (CKD-EPI) equation refit without adjustment for race. BUN/Creatinine Ratio 35.5 LAB CHEMISTRY METHOD 01/11/2025 1:02 PM EDT [facility] Calcium 9.1 8.5 - 10.5 mg/dL LAB CHEMISTRY METHOD 01/11/2025 1:02 PM EDT [facility] Blood Venous blood specimen / Unknown Venipuncture / Unknown 01/11/2025 6:03 AM EDT 01/11/2025 10:43 AM EDT us Manny Snachez MD LAB BLOOD ORDERABLES Final Resul t [facility] [address] [place] [address], [place] [phone] documented in this encounter Visit Diagnoses Diagnosis Systemic inflammatory response syndrome (sirs) of non-infectious origin without acute organ dysfunction (CMS/HCC V24, CMS/HCC V28) documented in this encounter Additional Health Concerns Infection Onset Date Last Indicated Resolved Time ESBL 01/04/2025 01/18/2025 documented as of this encounter Care Teams Orthodontic Technician Relationship Specialty Start Date End Date Salma Naik MD [address] [place] [phone] PCP - General Internal Medicine 12/02/22 documented as of this encounter
--- OUTSIDE RECORDS SUMMARY | 2025-05-09 18:27 | XMS_ITS | Encounter Summary ---
Author Organization [facility] Address [address] [place] [address] Care Team Providers Care Physical Therapist Name Role Phone Salma Naik MD Primary Care Provider [phone] Encounter Details Date Type Department Care Team (Late Contact Info) Description 12/29/2024 Lab Requisition [facility] - Main Lab 299 [facility] [place] [address] Manny Sanchez MD [address] [place] [address] Essential (primary) hypertension Social History Tobacco Use [...] 1:00 PM EDT Office Visit Adult Medicine [address] [phone] Salma Naik MD [address] [place] [phone] 07/05/2025 1:15 PM EST Office Visit Orthopedic Surgery - [place] 250 175 [facility] 250 [place] [phone] Bossman Higginbotham DPM 175 [facility] 250 [place] [phone] 07/06/2025 8:30 AM EST Office Visit Adult Medicine [facility] [place] 444 [place] [phone] Tyler Edwards PA 444 [place] [address] 09/29/2025 2:00 PM EST Office Visit Pulmonology - [place] 175 [facility] 200 [place] [phone] Loly Duggan MD 175 [facility] 200 [place] [address] documented as of this encounter Procedures Procedure Name Priority Date/Time Associated Diagnosis Comments CBC WITH AUTO DIFFERENTIAL Routine 12/30/2024 5:36 AM EDT Essential (primary) hypertension CBC AND DIFFERENTIAL Routine 12/30/2024 5:36 AM EDT Essential (primary) hypertension BASIC METABOLIC PANEL Routine 12/30/2024 5:36 AM EDT Essential (primary) hypertension documented in this encounter Results * (ABNORMAL) CBC auto differential (12/30/2024 5:36 AM EDT) [facility] Signature WBC 15.3(H) 4.8 - 10.8 K/[facility] LAB HEMETOLOGY METHOD 12/30/2024 7:53 AM EDT [facility] LAB RBC 5.40(H) 3.80 - 4.80 M/[facility] LAB HEMETOLOGY METHOD 12/30/2024 7:53 AM EDT [facility] LAB Hemoglobin 15.8 11.5 - 16.0 g/dL LAB HEMETOLOGY METHOD 12/30/2024 7:53 AM [facility] LAB Hematocrit 49.7(H) 35.0 - 47.0 % LAB HEMETOLOGY METHOD 12/30/2024 7:53 AM [facility] LAB MCV 91.9 79.0 - 98.0 FL LAB HEMETOLOGY METHOD 12/30/2024 7:53 AM [facility] LAB MCH 29.2 27.0 - 32.0 pcg LAB HEMETOLOGY METHOD 12/30/2024 7:53 AM [facility] LAB MCHC 31.8(L) 32.0 - 37.0 g/dL LAB HEMETOLOGY METHOD 12/30/2024 7:53 AM [facility] LAB RDW 14.8 11.0 - 15.0 % LAB HEMETOLOGY METHOD 12/30/2024 7:53 AM [facility] LAB Platelets 200 130 - 400 K/mcL LAB HEMETOLOGY METHOD 12/30/2024 7:53 AM [facility] LAB MPV 12.5(H) 7.0 - 11.0 FL LAB HEMETOLOGY METHOD 12/30/2024 7:53 AM [facility] LAB NRBC 0.0 <1.0 % LAB HEMETOLOGY METHOD 12/30/2024 7:53 AM [facility] LAB NRBC Absolute 0.00 <0.10 K/mcL LAB HEMETOLOGY METHOD 12/30/2024 7:53 AM [facility] LAB Neutrophils Relative 69.3 % LAB HEMETOLOGY METHOD 12/30/2024 7:53 AM [facility] LAB Lymphocytes Relative 19.8 % LAB HEMETOLOGY METHOD 12/30/2024 7:53 AM [facility] Monocytes Relative 8.0 % LAB HEMETOLOGY METHOD 12/30/2024 7:53 AM [facility] LAB Eosinophils Relative 1.2 % LAB HEMETOLOGY METHOD 12/30/2024 7:53 AM EDT [facility] LAB Basophils Relative 0.5 % LAB HEMETOLOGY METHOD 12/30/2024 7:53 AM EDT [facility] LAB Immature Granulocytes Relative 1.2 % LAB HEMETOLOGY METHOD 12/30/2024 7:53 AM EDT [facility] LAB Neutrophils Absolute 10.59(H) 1.50 - 7.00 K/mcL LAB HEMETOLOGY METHOD 12/30/2024 7:53 AM EDT [facility] LAB Lymphocytes Absolute 3.03 1.00 - 5.00 K/mcL LAB HEMETOLOGY METHOD 12/30/2024 7:53 AM EDT [facility] LAB Monocytes Absolute 1.22(H) 0.20 - 1.00 K/mcL LAB HEMETOLOGY METHOD 12/30/2024 7:53 AM EDT [facility] LAB Eosinophils Absolute 0.19 0.00 - 0.50 K/mcL LAB HEMETOLOGY METHOD 12/30/2024 7:53 AM EDT [facility] LAB Basophils Absolute 0.07 0.00 - 0.20 K/mcL LAB HEMETOLOGY METHOD 12/30[facility]24 [facility] Immature Granulocytes Absolute 0.18(H) 0.00 - 0.03 K/mcL LAB HEMETOLOGY METHOD 12/30/2024 7:53 AM EDT [facility] Blood Venous blood specimen / Unknown Venipuncture / Unknown 12/30/2024 5:36 AM EDT 12/30/2024 7:39 AM EDT us Manny Sanchez MD LAB BLOOD ORDERABLES Final Resul t [facility] 299 [place] [address], * (ABNORMAL) Basic metabolic panel (12/30/2024 5:36 AM EDT) Sodium 128(L) 133 - 145 mmol/L LAB CHEMISTRY METHOD 12/30/2024 9:03 AM [facility] Potassium 4.6 3.5 - 5.5 mmol/L LAB CHEMISTRY METHOD 12/30/2024 9:03 AM [facility] Chloride 95(L) 96 - 110 mmol/L LAB CHEMISTRY METHOD 12/30/2024 9:03 AM [facility] CO2 23 21 - 32 mmol/L LAB CHEMISTRY METHOD 12/30/2024 9:03 AM [facility] Anion Gap 10 3 - 11 LAB CHEMISTRY METHOD 12/30/2024 9:03 AM [facility] Glucose 156(H) 70 - 100 mg/dL LAB CHEMISTRY METHOD 12/30/2024 9:03 AM [facility] BUN 18 5 - 25 mg/dL LAB CHEMISTRY METHOD 12/30/2024 9:03 AM [facility] Creatinine 0.72 0.50 - 1.10 mg/dL LAB CHEMISTRY METHOD 12/30/2024 9:03 AM [facility] LAB eGFR 96 >=60 mL/min/1. 73m2 LAB CHEMISTRY METHOD 12/30/2024 9:03 AM [facility] Comment:Calculation based on the Chronic Kidney Disease Epidemiology Collaboration (CKD-EPI) equation refit without adjustment for race. BUN/Creatinine Ratio 25.0 LAB CHEMISTRY METHOD 12/30/2024 9:03 AM [facility] Calcium 9.5 8.5 - 10.5 mg/dL LAB CHEMISTRY METHOD 12/30/2024 9:03 AM [facility] Blood Venous blood specimen / Unknown Venipuncture / Unknown 12/30/2024 5:36 AM EDT 12/30/2024 7:39 AM EDT us Manny Sanchez MD LAB BLOOD ORDERABLES Final Resul t [facility] 299 [place] [address], documented in this encounter Visit Diagnoses Diagnosis Essential (primary) hypertension Unspecified essential hypertension documented in this encounter Additional Health Concerns Infection Onset Date Last Indicated Resolved Time ESBL 01/04/2025 01/18/2025 documented as of this encounter Care Teams Physical Therapist Relationship Specialty Start Date End Date Salma Naik MD 4 [place] [phone] PCP - General Internal Medicine 12/02/22 documented as of this encounter
--- OUTSIDE RECORDS SUMMARY | 2025-05-09 18:27 | XMS_ITS | Encounter Summary ---
Author Organization [facility] Address [address] [place] [address] Care Team Providers Care Emergency Spill Response Technician Name Role Phone Salma Naik MD Primary Care Provider [phone] Encounter Details Date Type Department Care Team ([facility] Contact Info) Description 12/23/2024 Lab Requisition [facility] - Main Lab 299 [facility] [place] [address] Manny Sanchez MD [address] [place] [address] Hypoxemia; Hypothyroidism, unspecified; Urinary tract infection, site not specified; Systemic inflammatory response syndrome (sirs) of non-infectious origin without acute organ dysfunction (CMS/HCC V24, CMS/HCC V28); Schizoaffective disorder, unspecified (CMS/HCC V24, CMS/HCC V28) Social History Tobacco [...] Upcoming Encounters Date Type Department Care Team ([facility] Contact Info) Description 06/02/2025 1:00 PM EDT Office Visit Adult Medicine [address] [phone] Salma Naik MD [address] [place] [phone] 07/05/2025 1:15 PM EST Office Visit Orthopedic Surgery - [place] 250 175 [facility] 250 [place] [address] Bossman Higginbotham DPM [address] [phone] 07/06/2025 8:30 AM EST Office Visit Adult Medicine [facility] [place] 444 [place], [place] [phone] Tyler Edwards PA 4 [place], [place] 09/29/2025 2:00 PM EST Office Visit Pulmonology - [place] 175 [facility] 200 [place] [phone] Loly Duggan MD [address] [address] documented as of this encounter Procedures Procedure Name Priority Date/Time Associated Diagnosis Comments COMPLETE BLOOD COUNT Routine 12/23/2024 6:24 AM EDT Hypoxemia Hypothyroidism, unspecified Urinary tract infection, site not specified Systemic inflammatory response syndrome (sirs) of non-infectious origin without acute organ dysfunction (CMS/HCC V24, CMS/HCC V28) Schizoaffective disorder, unspecified (CMS/HCC V24, CMS/HCC V28) THYROID STIMULATING HORMONE Routine 12/23/2024 6:24 AM EDT Hypoxemia Hypothyroidism, unspecified Urinary tract infection, site not specified Systemic inflammatory response syndrome (sirs) of non-infectious origin without acute organ dysfunction (CMS/HCC V24, CMS/HCC V28) Schizoaffective disorder, unspecified (CMS/HCC V24, CMS/HCC V28) FOLATE Routine 12/23/2024 6:24 AM EDT Hypoxemia Hypothyroidism, unspecified Urinary tract infection, site not specified Systemic inflammatory response syndrome (sirs) of non-infectious origin without acute organ dysfunction (CMS/HCC V24, CMS/HCC V28) Schizoaffective disorder, unspecified (CMS/HCC V24, CMS/HCC V28) VITAMIN B12 Routine 12/23/2024 6:24 AM EDT Hypoxemia Hypothyroidism, unspecified Urinary tract infection, site not specified Systemic inflammatory response syndrome (sirs) of non-infectious origin without acute organ dysfunction (CMS/HCC V24, CMS/HCC V28) Schizoaffective disorder, unspecified (CMS/HCC V24, CMS/HCC V28) BASIC METABOLIC PANEL Routine 12/23/2024 6:24 AM EDT Hypoxemia Hypothyroidism, unspecified Urinary tract infection, site not specified Systemic inflammatory response syndrome (sirs) of non-infectious origin without acute organ dysfunction (CMS/HCC V24, CMS/HCC V28) Schizoaffective disorder, unspecified (CMS/HCC V24, CMS/HCC V28) documented in this encounter Results * (ABNORMAL) Vitamin B12 (12/23/2024 6:24 AM EDT) [facility] Vitamin B-12 1,885(H) 250 - 900 pcg/mL LAB CHEMISTRY METHOD 12/23/2024 3:26 PM EDT [facility] Blood Venous blood specimen / Unknown Venipuncture / Unknown 12/23/2024 6:24 AM EDT 12/23/2024 11:16 AM EDT us Manny Sanchez MD LAB BLOOD ORDERABLES Final Resul t [facility] [address] [place] [address], * (ABNORMAL) Thyroid stimulating hormone (12/23/2024 6:24 AM EDT) [facility] TSH 6.06(H) 0.40 - 4.00 mcIU/mL LAB CHEMISTRY METHOD 12/23/2024 6:11 PM EDT [facility] Blood Venous blood specimen / Unknown Venipuncture / Unknown 12/23/2024 6:24 AM EDT 12/23/2024 11:16 AM EDT us Manny aSnchez MD LAB BLOOD ORDERABLES Final Resul t Performing Organization Address City/[facility]/ZIP Co de Phone Number [facility] [address] [place] [address], [place] [phone] * Folate (12/23/2024 6:24 AM EDT) Pathologist [facility] Folate 12.4 2.8 - 17.0 ng/ml LAB CHEMISTRY METHOD 12/23/2024 3:26 PM EDT [facility] Blood Venous blood specimen / Unknown Venipuncture / Unknown 12/23/2024 6:24 AM EDT 12/23/2024 11:16 AM EDT us Manny Sanchez MD LAB BLOOD ORDERABLES Final Resul t Performing Organization Address [facility]/ZIP Co de Phone Number [facility] [address] [place] [address], [place] [phone] * (ABNORMAL) Basic metabolic panel (12/23/2024 6:24 AM EDT) [facility] Sodium 139 133 - 145 mmol/L LAB CHEMISTRY METHOD 12/23/2024 3:26 PM EDT [facility] Potassium 4.2 3.5 - 5.5 mmol/L LAB CHEMISTRY METHOD 12/23/2024 3:26 PM EDT [facility] Chloride 99 96 - 110 mmol/L LAB CHEMISTRY METHOD 12/23/2024 3:26 PM EDT [facility] CO2 28 21 - 32 mmol/L LAB CHEMISTRY METHOD 12/23/2024 3:26 PM EDT [facility] Anion Gap 12(H) 3 - 11 LAB CHEMISTRY METHOD 12/23/2024 3:26 PM EDT [facility] Glucose 116(H) 70 - 100 mg/dL LAB CHEMISTRY METHOD 12/23/2024 3:26 PM EDT [facility] BUN 16 5 - 25 mg/dL LAB CHEMISTRY METHOD 12/23/2024 3:26 PM EDT [facility] Creatinine 0.41(L) 0.50 - 1.10 mg/dL LAB CHEMISTRY METHOD 12/23/2024 3:26 PM EDT [facility] eGFR 113 >=60 mL/min/1. 73m2 LAB CHEMISTRY METHOD 12/23/2024 3:26 PM EDT [facility] Comment:Calculation based on the Chronic Kidney Disease Epidemiology Collaboration (CKD-EPI) equation refit without adjustment for race. BUN/Creatinine Ratio 39.0 LAB CHEMISTRY METHOD 12/23/2024 3:26 PM EDT [facility] Calcium 9.7 8.5 - 10.5 mg/dL LAB CHEMISTRY METHOD 12/23/2024 3:26 PM EDT [facility] Blood Venous blood specimen / Unknown Venipuncture / Unknown 12/23/2024 6:24 AM EDT 12/23/2024 11:16 AM EDT us Manny Sanchez MD LAB BLOOD ORDERABLES Final Resul t [facility] [address] [place] [address], * (ABNORMAL) Complete blood count (12/23/2024 6:24 AM EDT) WBC 9.6 4.8 - 10.8 K/mcL LAB HEMETOLOGY METHOD 12/23/2024 12:16 PM EDT [facility] RBC 4.80 3.80 - 4.80 M/mcL LAB HEMETOLOGY METHOD 12/23/2024 12:16 PM EDT [facility] Hemoglobin 14.1 11.5 - 16.0 g/dL LAB HEMETOLOGY METHOD 12/23[facility]2024 12:[facility] Hematocrit 46.2 35.0 - 47.0 % LAB HEMETOLOGY METHOD 12/23/2024 12:[facility] MCV 95.5 79.0 - 98.0 FL LAB HEMETOLOGY METHOD 12/23/2024 12:16 PM EDT [facility] MCH 29.1 27.0 - 32.0 pcg LAB HEMETOLOGY METHOD 12/23/2024 12:[facility] MCHC 30.5(L) 32.0 - 37.0 g/dL LAB HEMETOLOGY METHOD 12/23/2024 12:16 PM [facility] RDW 14.6 11.0 - 15.0 % LAB HEMETOLOGY METHOD 12/23/2024 12:16 [facility] Platelets 159 130 - 400 K/mcL LAB HEMETOLOGY METHOD 12/23/2024 12:16 PM [facility] MPV 13.2(H) 7.0 - 11.0 FL LAB HEMETOLOGY METHOD 12/23/2024 12:16 [facility] NRBC 0.0 <1.0 % LAB HEMETOLOGY METHOD 12/23/2024 12:16 PM T [facility] NRBC Absolute 0.00 <0.10 K/mcL LAB HEMETOLOGY METHOD 12/23/2024 12:16 PM [facility] Blood Venous blood specimen / Unknown Venipuncture / Unknown 12/23/2024 6:24 AM EDT 12/23/2024 11:16 AM EDT Manny Sanchez MD LAB BLOOD ORDERABLES Final Resul t [facility] LAB [address] [place] [address], documented in this encounter Visit Diagnoses Diagnosis Hypoxemia Hypothyroidism, unspecified Urinary tract infection, site not specified Systemic inflammatory response syndrome (sirs) of non-infectious origin without acute organ dysfunction ([facility] V24, [facility] V28) Schizoaffective disorder, unspecified ([facility] V24, [facility] V28) documented in this encounter Additional Health Concerns Infection Onset Date Last Indicated Resolved Time ESBL 01/04/2025 01/18/2025 documented as of this encounter Care Teams Emergency Spill Response Technician Relationship Specialty Start Date End Date Salma Naik MD [address] [place] [phone] PCP - General Internal Medicine 12/02/22 documented as of this encounter
--- OUTSIDE RECORDS SUMMARY | 2025-05-09 18:27 | XMS_ITS | Encounter Summary ---
Author Organization [facility] Address [address] [place] [address] Care Team Providers Care Manager Demand Name Role Phone Salma Naik MD Primary Care Provider [phone] Encounter Details Date Type Department Care Team (Late Contact Info) Description 01/12/2025 Lab Requisition [facility] - Main Lab 299 [facility] [place] [address] Manny Sanchez MD [address] [place] [address] Essential (primary) hypertension Social History Tobacco Use [...] PM EDT Office Visit Adult Medicine [address] [phone] Salma Naik MD [address] [place] [address] 07/05/2025 1:15 PM EST Office Visit Orthopedic Surgery - [place] 250 175 [facility] 250 [place] [phone] Bossman Higginbotham, BERE 175 [facility] 250 [place] [phone] 07/06/2025 8:30 AM EST Office Visit Adult Medicine [facility] 444 [place] [phone] Tyler Edwards PA 444 [place] [address] 09/29/2025 2:00 PM EST Office Visit Pulmonology - [place] 175 [facility] 200 [place] [phone] Loly Duggan MD 175 [facility] 200 [place] [address] documented as of this encounter Procedures Procedure Name Priority Date/Time Associated Diagnosis Comments CBC WITH AUTO DIFFERENTIAL Routine 01/13/2025 6:15 AM EDT Essential (primary) hypertension CBC AND DIFFERENTIAL Routine 01/13/2025 6:15 AM EDT Essential (primary) hypertension BASIC METABOLIC PANEL Routine 01/13/2025 6:15 AM EDT Essential (primary) hypertension documented in this encounter Results * (ABNORMAL) CBC auto differential (01/13/2025 6:15 AM EDT) [facility] WBC 8.7 4.8 - 10.8 K/mcL LAB HEMETOLOGY METHOD 01/13/2025 8:33 AM EDT [facility] RBC 4.10 3.80 - 4.80 M/mcL LAB HEMETOLOGY METHOD 01/13/2025 8:33 AM EDT [facility] Hemoglobin 12.1 11.5 - 16.0 g/dL LAB HEMETOLOGY METHOD 01/13/2025 8:[facility] Hematocrit 38.4 35.0 - 47.0 % LAB HEMETOLOGY METHOD 01/13/2025 8:33 AM [facility] MCV 93.7 79.0 - 98.0 FL LAB HEMETOLOGY METHOD 01/13/2025 8:33 AM [facility] MCH 29.5 27.0 - 32.0 pcg LAB HEMETOLOGY METHOD 01/13/2025 8:33 AM [facility] MCHC 31.5(L) 32.0 - 37.0 g/dL LAB HEMETOLOGY METHOD 01/13/2025 8:33 AM [facility] RDW 14.7 11.0 - 15.0 % LAB HEMETOLOGY METHOD 01/13/2025 8:33 AM [facility] Platelets 274 130 - 400 K/mcL LAB HEMETOLOGY METHOD 01/13/2025 8:33 AM [facility] MPV 11.0 7.0 - 11.0 FL LAB HEMETOLOGY METHOD 01/13/2025 8:33 AM [facility] NRBC 0.0 <1.0 % LAB HEMETOLOGY METHOD 01/13/2025 8:33 AM [facility] NRBC Absolute 0.00 <0.10 K/mcL LAB HEMETOLOGY METHOD 01/13/2025 8:33 AM [facility] Neutrophils Relative 52.8 % LAB HEMETOLOGY METHOD 01/13/2025 8:33 AM [facility] Lymphocytes Relative 37.7 % LAB HEMETOLOGY METHOD 01/13/2025 8:33 AM [facility] Monocytes Relative 5.7 % LAB HEMETOLOGY METHOD 01/13/2025 8:33 AM [facility] Eosinophils Relative 2.1 % LAB HEMETOLOGY METHOD 01/13/2025 8:33 AM EDT [facility] Basophils Relative 0.6 % LAB HEMETOLOGY METHOD 01/13/2025 8:33 AM EDT [facility] Immature Granulocytes Relative 1.1 % LAB HEMETOLOGY METHOD 01/13/2025 8:33 AM EDT [facility] Neutrophils Absolute 4.61 1.50 - 7.00 K/mcL LAB HEMETOLOGY METHOD 01/13/2025 8:33 AM EDT [facility] Lymphocytes Absolute 3.29 1.00 - 5.00 K/mcL LAB HEMETOLOGY METHOD 01/13/2025 8:33 AM EDT [facility] Monocytes Absolute 0.50 0.20 - 1.00 K/mcL LAB HEMETOLOGY METHOD 01/13/2025 8:[facility] Eosinophils Absolute 0.18 0.00 - 0.50 K/mcL LAB HEMETOLOGY METHOD 01/13/2025 8:33 AM EDT [facility] Basophils Absolute 0.05 0.00 - 0.20 K/mcL LAB HEMETOLOGY METHOD 01/13/2025 8:33 AM EDT [facility] Immature Granulocytes Absolute 0.10(H) 0.00 - 0.03 K/mcL LAB HEMETOLOGY METHOD 01/13/2025 8:33 AM EDT [facility] Blood Venous blood specimen / Unknown Venipuncture / Unknown 01/13/2025 6:15 AM EDT 01/13/2025 8:10 AM EDT us Manny Sanchez MD LAB BLOOD ORDERABLES Final Resul t [facility] [address] [place] [address], * (ABNORMAL) Basic metabolic panel (01/13/2025 6:15 AM EDT) Sodium 136 133 - 145 mmol/L LAB CHEMISTRY METHOD 01/13/2025 8:50 AM [facility] Potassium 4.4 3.5 - 5.5 mmol/L LAB CHEMISTRY METHOD 01/13/2025 8:50 AM [facility] Chloride 102 96 - 110 mmol/L LAB CHEMISTRY METHOD 01/13/2025 8:50 AM [facility] CO2 29 21 - 32 mmol/L LAB CHEMISTRY METHOD 01/13/2025 8:50 AM [facility] Anion Gap 5 3 - 11 LAB CHEMISTRY METHOD 01/13/2025 8:50 AM [facility] Glucose 86 70 - 100 mg/dL LAB CHEMISTRY METHOD 01/13/2025 8:50 AM [facility] BUN 9 5 - 25 mg/dL LAB CHEMISTRY METHOD 01/13/2025 8:50 AM [facility] Creatinine 0.34(L) 0.50 - 1.10 mg/dL LAB CHEMISTRY METHOD 01/13/2025 8:50 AM [facility] eGFR 118 >=60 mL/min/1. 73m2 LAB CHEMISTRY METHOD 01/13/2025 8:50 AM [facility] Comment:Calculation based on the Chronic Kidney Disease Epidemiology Collaboration (CKD-EPI) equation refit without adjustment for race. BUN/Creatinine Ratio 26.5 LAB CHEMISTRY METHOD 01/13/2025 8:50 AM [facility] Calcium 9.4 8.5 - 10.5 mg/dL LAB CHEMISTRY METHOD 01/13/2025 8:50 AM [facility] Blood Venous blood specimen / Unknown Venipuncture / Unknown 01/13/2025 6:15 AM EDT 01/13/2025 8:10 AM EDT Manny Sanchez MD LAB BLOOD ORDERABLES Final Resul t [facility] [address] [place] [address], documented in this encounter Visit Diagnoses Diagnosis Essential (primary) hypertension Unspecified essential hypertension documented in this encounter Additional Health Concerns Infection Onset Date Last Indicated Resolved Time ESBL 01/04/2025 01/18/2025 documented as of this encounter Care Teams Manager Demand Relationship Specialty Start Date End Date Salma Naik MD [address] [place] [phone] PCP - General Internal Medicine 12/02/22 documented as of this encounter
--- OUTSIDE RECORDS SUMMARY | 2025-05-09 18:27 | XMS_ITS | Encounter Summary ---
Author Organization [facility] Address [address] [place] [address] Care Team Providers Care Primary Clinician Name Role Phone Salma Naik MD Primary Care Provider [phone] Reason for Visit * Reason Comments Med Refill Encounter Details Date Type Department Care Team ([facility] st Contact Info) Description 05/04/2025 Telephone Adult Medicine [address] [phone] Salma Naik MD [address] [place] [address] Social History Tobacco Use Types Packs/Day Years [...] as of this encounter Progress Notes * LIVIER Bruce - 05/09/2025 12:30 PM EDT This med was sent by PCP to [facility] on 04/28. Please verify which pharmacy is supposed to receive thisas this request is coming from [facility]. Outpatient Medication Detail polyethylene glycol (MIRALAX) 17 gram packet Sig: mix 1 PACKET into 8 OUNCE OF WATER OR beverage AND TAKE BY MOUTH daily IN THE am Sent to pharmacy as: polyethylene glycol 3350 17 gram oral powder packet (MIRALAX) Class: Normal E-Prescribing Status: Receipt confirmed by pharmacy (04/28/2025 12:28 PM EDT) Event History Event History Pharmacy [facility] [place] - [id number] [place] - [address] * Geovany Santizo [place] - 05/08/2025 1:23 PM EDT RX from 01/29/2025 not received. documented in this encounter Plan of Treatment Upcoming Encounters Date Type Department Care Team (Late st Contact Info) Description 06/02/2025 1:00 PM EDT Office Visit Adult Medicine [address] [phone] Salma Naik MD [address] [place] [address] 07/05/2025 1:15 PM EST Office Visit Orthopedic Surgery - [place] [address] [phone] Bossman Higginbotham DPKeren [address] [phone] 07/06/2025 8:30 AM EST Office Visit Adult Medicine [address] [phone] Tyler Edwards PA [address] [place] [address] 09/29/2025 2:00 PM EST Office Visit Pulmonology - [place] [address] [phone] Loly Duggan MD [address] [phone] documented as of this encounter Visit Diagnoses Not on filedocumented in this encounter Additional Health Concerns Infection Onset Date Last Indicated Resolved Time ESBL 01/04/2025 01/18/2025 documented as of this encounter Care Teams Primary Clinician Relationship Specialty Start Date End Date Salma Naik MD [address] [place] [phone] PCP - General Internal Medicine 12/02/22 documented as of this encounter
--- OUTSIDE RECORDS SUMMARY | 2025-05-09 18:27 | XMS_ITS | Encounter Summary ---
Author Organization [facility] Address [address] [place] [address] Care Team Providers Care Snow Shoveler Name Role Phone Salma Naik MD Primary Care Provider [phone] Encounter Details Date Type Department Care Team (Late Contact Info) Description 02/01/2025 Lab Requisition [facility] - Main Lab [address] [facility] [place] [phone] Manny Sanchez MD [address] [place] [address] Essential (primary) hypertension Social History Tobacco Use [...] 1:00 PM EDT Office Visit Adult Medicine [address] [phone] Salma Naik MD [address] [place] [phone] 07/05/2025 1:15 PM EST Office Visit Orthopedic Surgery - [place] [address] 175 [facility] [address] [place] [address] Bossman Higginbotham, DPM 175 [facility] [address] [place] [address] 07/06/2025 8:30 AM EST Office Visit Adult Medicine [facility] [address] [place], [place] [phone] Tyler Edwards PA [address] [place], [place] 09/29/2025 2:00 PM EST Office Visit Pulmonology - [place] 175 [facility] 200 [place] [phone] Loly Duggan MD [address] [phone] documented as of this encounter Visit Diagnoses Diagnosis Essential (primary) hypertension Unspecified essential hypertension documented in this encounter Additional Health Concerns Infection Onset Date Last Indicated Resolved Time ESBL 01/04/2025 01/18/2025 documented as of this encounter Care Teams Snow Shoveler Relationship Specialty Start Date End Date Salma Naik MD [address] [place] [address] PCP - General Internal Medicine 12/02/22 documented as of this encounter
--- OUTSIDE RECORDS SUMMARY | 2025-05-09 18:27 | XMS_ITS | Clinical Summary ---
Author Organization [facility] [address] [place] [address] [place] [phone] Phone Care Team Providers Care Refrigeration Service Inspector Name Role Phone Salma Naik MD Primary Care Provider [phone] Allergies No known active allergies Medications clonazePAM (KlonoPIN) 0.5 mg tablet 01/02/20 23 Active clotrimazole (LOTRIMIN) 1 % cream Apply to skin and toenails daily for 12 weeks 04/06/20 24 Active FLUoxetine (PROzac) 10 mg capsule Take 1 capsule by mouth every morning with meals 10/14/19 24 Active hydrOXYzine HCL (ATARAX) 25 mg tablet Take 1 tablet (25 mg total) by mouth 1 (one) time each day if needed. Active nystatin, bulk, 10 billion unit powder Apply to affected area of skin twice dialy as needed for rash. 08/14/19 24 Active simethicone (MYLICON) 80 mg chewable tablet Chew 1 tablet (80 mg total) 3 (three) times a day if needed for flatulence. 03/30/20 24 Active cranberry fruit concentrate 125 mg tablet,disinteg rating Take by mouth. 03/30/20 24 Active calcium carb-mag hydrox-simeth (Mylanta Coat-Cool) 1,200 mg-270 mg -80 mg/10 mL suspension Take 5 mL by mouth. 10/24/19 24 Active sodium chloride 3 % nebulizer solution Take 4 mL by nebulization if needed for cough. Active guaiFENesin (ROBITUSSIN) 100 mg/5 mL liquid Take 10 mL (200 mg total) by mouth 3 (three) times a day if needed for cough. 900 mL 3 07/18/20 24 Active umeclidinium-vi lanteroL (Anoro Ellipta) 62.5-25 mcg/actuation inhalerIndicati ons:Chronic obstructive pulmonary disease, unspecified COPD type ([facility] V24, [facility] V28) Inhale 1 puff by mouth 1 (one) time each day. 3 each 3 09/07/19 25 026 Active freestyle 28 gauge lancetsIndicati ons:Type 2 diabetes mellitus without complication, without long-term current use of insulin ([facility] V24, [facility] V28) Use to test blood sugars once a day. Lancets to be dispensed for the True Metrix Glucose Meter.E11.9 100 each 3 09/15/19 25 026 Active methenamine hippurate (HIPREX) 1 gram tablet TAKE 1 TABLET BY MOUTH TWICE DAILY 180 tablet 1 09/28/19 25 Active Austedo XR 6 mg tablet extended release 24 hr take 1 tablet by mouth once daily in the am 09/19/19 25 Active acetaminophen (TYLENOL 8 HOUR) 650 mg 8 hr tablet Take 1 tablet (650 mg total) by mouth every 8 (eight) hours if needed for mild pain. for pain 90 tablet 1 01/28/20 25 Active aluminum-magnes ium hydroxide-simet hicone (MAALOX MAX) 400-400-40 mg/5 mL suspension Take 5 mL by mouth 1 (one) time each day in the morning. 355 mL 4 01/28/20 25 Active aspirin 81 mg EC tablet Take 1 tablet (81 mg total) by mouth 1 (one) time each day in the morning. 90 tablet 1 01/28/20 25 Active cetirizine (ZyrTEC) 10 mg tablet Take 1 tablet (10 mg total) by mouth 1 (one) time each day. 90 tablet 1 01/28/20 25 Active docusate sodium (COLACE) 100 mg capsule Take 1 capsule (100 mg total) by mouth 2 (two) times a day. 180 capsule 1 01/28/20 25 Active cloZAPine (CLOZARIL) 100 mg tablet Take 1.5 tablets (150 mg total) by mouth at bedtime. Active Desitin Daily Defense 13 % cream Apply topically once daily to affected areas as needed to provide skin protection 60 g 3 02/11/20 25 Active bisacodyL (DULCOLAX) 10 mg suppository Insert 1 suppository (10 mg total) into the rectum 1 (one) time if needed for constipation for up to 12 doses. 12 suppository 02/12/20 25 Active vit A,C and R-vhzyna-ijukpd ls (OCUVITE) 300 mcg-200 mg-27 mg-2 mg tablet Take 1,000 mg by mouth 1 (one) time each day. Vit C only 06/09/20 24 Active insulin glargine (LANTUS) 100 unit/mL injection Inject 10 Units under the skin 1 (one) time each day in the morning. Active blood sugar diagnostic (True Metrix Glucose Test Strip) test stripIndication s:Type 2 diabetes mellitus without complication, without long-term current use of insulin ([facility]/[place] V24, [facility]/[place] V28) E11.9 Use to test blood sugars once a day 100 each 3 02/15/20 25 026 Active blood-glucose meter (True Metrix Glucose Meter) miscIndications :Type 2 diabetes mellitus without complication, without long-term current use of insulin (CMS/[place] V24, CMS/HCC V28) E11.9 Used to check sugars once daily 1 each 02/15/20 25 Active magnesium hydroxide (Milk of Magnesia) 400 mg/5 mL suspension Take 15 mL by mouth daily as needed for Constipation. 355 mL 02/17/20 25 Active pen needle, diabetic (BD Ultra-Fine Short Pen Needle) 31 gauge x 5/16 needle Use to inject 4 times daily as directed 100 each 5 02/22/20 25 Active glipiZIDE (GLUCOTROL) 5 mg tablet TAKE 1/2 TABLET BY MOUTH EVERY MORNING BEFORE BREAKFAST 15 tablet 5 03/01/20 25 Active metFORMIN (GLUCOPHAGE) 500 mg tablet Take 1 tablet by mouth twice a day 180 tablet 1 03/08/20 25 Active levothyroxine (SYNTHROID, LEVOTHROID) 150 mcg tablet Take 1 tablet (150 mcg total) by mouth 1 (one) time each day before breakfast. 90 tablet 1 03/07/20 25 Active polyethylene glycol (MIRALAX) 17 gram packet mix 1 PACKET into 8 OUNCE OF WATER OR beverage AND TAKE BY MOUTH daily IN THE am 90 packet 1 04/28/20 Active polyethylene glycol (MIRALAX) 17 gram packet mix 1 PACKET into 8 OUNCE OF WATER OR beverage AND TAKE BY MOUTH daily IN THE am 90 packet 1 01/28/20 25 025 Discontin ued(Reord er) Active Problems Problem Noted Date Diagnosed Date Chronic indwelling Vargas catheter 03/21/2025 Developmental delay 10/03/2024 Acute respiratory failure wi th hypoxia ([facility] V24, [facility] V28) 09/08/2023 Dysphagia, unspecified 09/08/2023 Depression, unspecified 08/24/2023 Chronic obstructive pulmonar y disease, unspecified ([facility] V24, [facility] V28) 07/07/2023 Essential (primary) hypertension 07/07/2023 Type 2 diabetes mellitus wit hout complication, without long-term current use of insulin ([facility] V24, [facility] V28) 01/28/2023 Schizoaffective disorder ([facility] V24, [facility] V 28) 01/28/2023 Pelvic mass 01/28/2023 Overactive bladder 01/28/2023 Irritable bowel syndrome 01/28/2023 Hypothyroidism 01/28/2023 Hypercholesteremia 01/28/2023 Foul smelling urine 01/28/2023 Encounters Date Type Department Care Team Description 05/05/2025 2:00 PM EDT - 05/05/2025 11:59 PM EDT Hospital Encounter [facility] CT Scan [address] [place] [address] Lung nodules; Enlargement of lymph node Discharge Disposition: Home or Self Care 05/04/2025 Telephone Adult Medicine [address] [phone] Salma Naik MD 05/02/2025 Telephone Adult Medicine [address] [phone] Salma Naik MD 05/01/2025 Telephone Adult Medicine [address] [phone] Justa Magaña [place] 05/01/2025 Telephone Adult [address] [phone] Justa Magaña [place] 04/26/2025 1:30 PM EDT Office Visit Orthopedic Surgery - [place] [address] [facility] [address] [place] [phone] Bossman Higginbotham DPM Ingrowing nail (Primary Dx); Dermatophytosis of nail; Diabetic mononeuropathy simplex ([facility] V24, [facility] V28); Pain in toe of right foot; Pain in toe of left foot; Difficulty walking; Type II diabetes mellitus with peripheral circulatory disorder ([facility] V24, [facility] V28) 04/25/[address] [phone] Salma Naik MD 03/29/2025 11:15 AM EDT Office Visit Pulmonology [facility] 175 [facility] [address] [place] [phone] Loly Duggan MD Enlargement of lymph node (Primary Dx); Chronic obstructive pulmonary disease, unspecified COPD type ([facility] V24, [facility] V28); Bronchiectasis without complication ([facility] V24, [facility] V28); Lung nodules; Recurrent pneumonia 03/24/[address] [phone] Salma Naik MD 03/21/2025 11:30 AM EDT Office Visit [address] [phone] Tyler Edwards PA Overactive bladder (Primary Dx); Chronic indwelling Vargas catheter 03/20/[address] [phone] Salma Naik MD 03/15/2025 12:30 PM EDT Office Visit [address] [phone] Salma Naik MD Hospital discharge follow-up (Primary Dx); Vargas catheter present; Acute cystitis without hematuria; Viral pneumonia 02/27/2025 10:45 AM EDT Office Visit Pulmonology [facility] [address] [phone] Loly Duggan MD Abnormal CT of the chest (Primary Dx); Chronic obstructive pulmonary disease, unspecified COPD type ([facility] V24, [facility] V28); Bronchiectasis without complication ([facility] V24, [facility] V28); Lung nodules; Ex-smoker; MERCEDES (obstructive sleep apnea) 02/21/2025 Telephone Endocrinology [address] [phone] Winnie Fagan PA 02/16/2025 Telephone Pulmonology [facility] [address] [phone] Loly Duggan MD 02/16/2025 Telephone Adult Medicine [address] [phone] Salma Naik MD 02/14/2025 4:00 PM EDT Office Visit [address] [phone] Winnie Fagan PA Type 2 diabetes mellitus without complication, without long-term current use of insulin ([facility] V24, [facility] V28) (Primary Dx); Hypothyroidism, unspecified type 02/14/2025 Telephone Endocrinology [address] [phone] Angelica Naik PA 02/14/2025 Telephone Adult Medicine [address] [phone] Salma Naik MD 02/10/2025 12:30 PM EDT Office Visit Adult Medicine [address] [phone] Salma Naik MD Hospital discharge follow-up (Primary Dx); Type 2 diabetes mellitus without complication, without long-term current use of insulin ([facility] V24, [facility] V28); Foul smelling urine; Acquired hypothyroidism; Urinary retention; Vargas catheter present; Chronic idiopathic constipation from Last 3 Months Immunizations Immunization Administration Dates Next Due Influenza Quadravalent, MDCK , 0.5ml, preservative free (Flucelvax) 6mo and older 06/05/2021 Influenza Quadrivalent, 0.5m l, preservative free (Fluarix; FluLaval; Fluzone) ages 6mo and older (Afluria) 3yo and older 08/19/2023 Influenza trivalent, 0.5mL, preservative free (Fluarix; FluLaval; Fluzone) ages 6mo and older (Afluria) 3 years and older 06/24/2016 Surgical History Surgery Date Site/Laterality Comments OTHER SURGICAL HISTORY PROCEDURE: HISTORY OTHER; COMMENT: b/l finger oophorectomy Social History Tobacco Use Types Packs/Day Years Used Date Smoking Tobacco: Former Passive Smoke Exposure: Past Smokeless Tobacco: Former Tobacco Cessation:Counseling Given: Not Answered Alcohol Use Standard Drinks/Week Comments Not Currently 0 (1 standard drink = 0.6 oz pur e alcohol) Comments No Sex and Gender Information Value Date Recorded Sex Assigned at Not on file Legal Sex Female 9:20 AM EST Gender Identity Not on file Sexual Orientation Not on file Obstetrics History Last Filed Vital Signs Vital Sign Reading Time Taken Comments Blood Pressure 125/78 03/29/2025 11:30 AM EDT Pulse 75 03/29/2025 11:30 AM EDT Temperature 35.7 C (96.3 F) 03/29/2025 11:30 AM EDT Respiratory Rate 18 03/29/2025 11:30 AM EDT Oxygen Saturation 95% 03/29/2025 11:30 AM EDT Inhaled Oxygen Concentration - - Weight 102 kg (225 lb) 03/15/2025 12:39 PM EDT Height 167.6 cm (5' 6 ) 03/15/2025 12:39 PM EDT Body Mass Index 36.32 03/15/2025 12:39 PM EDT Plan of Treatment Upcoming Encounters Date Type Department Care Team (Late st Contact Info) Description 06/02/2025 1:00 PM EDT Office Visit Adult Medicine [facility] [address] [place] [address] Salma Naik MD [address] [place] [address] 07/05/2025 1:15 PM EST Office Visit Orthopedic Surgery - [place] [address] [phone] Bossman Higginbotham DPM [address] [phone] 07/06/2025 8:30 AM EST Office Visit Adult [address] [phone] Tyler Edwards PA [address] [place] [address] 09/29/2025 2:00 PM EST Office Visit Pulmonology - [place] [address] [phone] Loly Duggan MD [address] [phone] Health Maintenance Due Date Last Done Comments Breast Cancer Screening 1964 Colorectal Cancer Screening: Colonoscopy 1964 Diabetes: Annual Foot Exam 1974 Diabetes: Annual Retina Eye Exam 1974 DTaP,Tdap,and Td Vaccines (1 - Tdap) 1983 Pneumococcal Vaccine: 50+ Years (1 of 2 - PCV) 1983 Zoster Vaccines (1 of 2) 2014 HIV Screening 07/06/2022 Hepatitis C Screening 07/06/2022 Medicare Annual Wellness Visit 07/06/2022 Social Influencers of Health Screening 07/06/2022 Diabetes: Annual Urine Albumin-Creatinine Ratio (uACR) 02/18/2024 02/17/2023 RSV Immunization Adult Patients (1 - Risk 60-74 years 1-dose series) 2024 Depression Screening 08/03/2024 01/01/2024 COVID-19 Vaccine ( season) 2025 09/15/2023, 02/17/2022, 05/16/2021, Additional history exists Influenza Vaccine (#1) 2025 , 08/05/2023, 06/05/2021, Additional history exists Diabetes: Blood Sugar Control Test (HGBA1C) 08/13/2025 02/10/2025, 10/14/2024, 07/08/2024, Additional history exists Cervical Cancer Screening: Pap Smear 08/29/2025 08/29/2022 Diabetes: Annual GFR (Glomerular Filtration Rate) 02/10/2026 02/10/2025, 01/27/2025, 01/21/2025, Additional history exists Hypertension/CHF/CAD Annual BMP Blood Test 02/10/2026 02/10/2025, 01/27/2025, 01/21/2025, Additional history exists Cholesterol Screening (Lipid Panel) 01/13/2029 01/14/2024, 01/14/2024 HIB Vaccines Aged Out No longer eligi ble based on patient's age to complete this topic HPV Vaccines Aged Out No longer eligi ble based on patient's age to complete this topic Hepatitis A Vaccines Aged Out No long er eligible based on patient's age to complete this topic Hepatitis B Vaccines Aged Out No long er eligible based on patient's age to complete this topic IPV Vaccines Aged Out No longer eligi ble based on patient's age to complete this topic MMR Vaccines Aged Out No longer eligi ble based on patient's age to complete this topic Meningococcal ACWY Vaccine Aged Out N o longer eligible based on patient's age to complete this topic Meningococcal B Vaccine Aged Out No l onger eligible based on patient's age to complete this topic RSV Immunization Patients Under 20 months Aged Out No longer eligible based on patient's age to complete this topic Varicella Vaccines Aged Out No longer eligible based on patient's age to complete this topic Procedures Procedure Name Priority Date/Time Associated Diagnosis Comments XR CHEST 2 VIEWS Routine 04/05/2025 10:[address] ABDOMEN PELVIS WO AND W CONTRAST Routine 04/05/2025 10:47 AM EDT POC GLUCOSE Routine 02/14/2025 4:20 PM EDT Type 2 diabetes mellitus without complication, without long-term current use of insulin ([facility] V24, [facility] V28) CBC WITH AUTO DIFFERENTIAL Routine 02/10/2025 2:02 PM EDT Type 2 diabetes mellitus without complication, without long-term current use of insulin ([facility] V24, [facility] V28) HEMOGLOBIN A1C Routine 02/10/2025 2:02 PM EDT Type 2 diabetes mellitus without complication, without long-term current use of insulin ([facility] V24, [facility] V28) BASIC METABOLIC PANEL Routine 02/10/2025 2:02 PM EDT Type 2 diabetes mellitus without complication, without long-term current use of insulin ([facility] V24, [facility] V28) CBC AND DIFFERENTIAL Routine 02/10/2025 2:02 PM EDT Type 2 diabetes mellitus without complication, without long-term current use of insulin ([facility] V24, [facility] V28) LIPID PANEL Routine 01/14/2024 HM DEPRESSION SCREENING Routine 01/01/2024 URINE ALBUMIN CREATININE RATIO Routine 02/17/2023 PAP SMEAR Routine 08/29/2022 from Last 3 Months or Most Recently Relevant to Health Maintenance Results * XR Chest 2 Views (04/05/2025 10:48 AM EDT) Anatomical Region Laterality Modality Body Radiographic Bailey ging Historical Provider MD PEREZ XR PROCEDURES Final R esult * CT Abdomen Pelvis wo and w Contrast (04/05/2025 10:47 AM EDT) Anatomical Region Laterality Modality Body Computed Tomogra phy Historical Provider MD PEREZ CT PROCEDURES Final R esult * POC glucose manually resulted (02/14/2025 4:20 PM EDT) [facility] Glucose POC 150 mg/dL Comment:Non fASTING Blood Capillary blood specimen / Unknown 02/14/2025 4:20 PM EDT Winnie MAIER POINT OF CARE TEST ENTER/ED IT ORDERABLES Final Result * (ABNORMAL) CBC auto differential (02/10/2025 2:02 PM EDT) [facility] WBC 11.1(H) 4.8 - 10.8 K/mcL LAB HEMETOLOGY METHOD 02/10/2025 5:05 PM [facility] RBC 4.40 3.80 - 4.80 M/mcL LAB HEMETOLOGY METHOD 02/10/2025 5:05 PM [facility] Hemoglobin 12.7 11.5 - 16.0 g/dL LAB HEMETOLOGY METHOD 02/10/2025 5:05 PM [facility] Hematocrit 40.9 35.0 - 47.0 % LAB HEMETOLOGY METHOD 02/10/2025 5:05 PM [facility] MCV 92.7 79.0 - 98.0 FL LAB HEMETOLOGY METHOD 02/10/2025 5:05 PM [facility] MCH 28.8 27.0 - 32.0 pcg LAB HEMETOLOGY METHOD 02/10/2025 5:05 PM [facility] MCHC 31.1(L) 32.0 - 37.0 g/dL LAB HEMETOLOGY METHOD 02/10/2025 5:05 PM [facility] RDW 14.0 11.0 - 15.0 % LAB HEMETOLOGY METHOD 02/10/2025 5:05 PM [facility] Platelets 193 130 - 400 K/mcL LAB HEMETOLOGY METHOD 02/10/2025 5:05 PM [facility] MPV 12.7(H) 7.0 - 11.0 FL LAB HEMETOLOGY METHOD 02/10/2025 5:05 PM [facility] NRBC 0.0 <1.0 % LAB HEMETOLOGY METHOD 02/10/2025 5:05 PM [facility] NRBC Absolute 0.00 <0.10 K/mcL LAB HEMETOLOGY METHOD 02/10/2025 5:05 PM [facility] Neutrophils Relative 67.1 % LAB HEMETOLOGY METHOD 02/10/2025 5:05 PM [facility] Lymphocytes Relative 22.7 % LAB HEMETOLOGY METHOD 02/10/2025 5:05 PM [facility] Monocytes Relative 6.6 % LAB HEMETOLOGY METHOD 02/10/2025 5:05 PM [facility] Eosinophils Relative 1.6 % LAB HEMETOLOGY METHOD 02/10/2025 5:05 PM [facility] Basophils Relative 0.5 % LAB HEMETOLOGY METHOD 02/10/2025 5:05 PM [facility] Immature Granulocytes Relative 1.5 % LAB HEMETOLOGY METHOD 02/10/2025 5:05 PM [facility] Neutrophils Absolute 7.45(H) 1.50 - 7.00 K/mcL LAB HEMETOLOGY METHOD 02/10/2025 5:05 PM [facility] Lymphocytes Absolute 2.52 1.00 - 5.00 K/mcL LAB HEMETOLOGY METHOD 02/10/2025 5:05 PM [facility] Monocytes Absolute 0.73 0.20 - 1.00 K/mcL LAB HEMETOLOGY METHOD 02/10/2025 5:05 PM [facility] Eosinophils Absolute 0.18 0.00 - 0.50 K/[facility] LAB HEMETOLOGY METHOD 02/10/2025 5:05 PM EDT [facility] Basophils Absolute 0.05 0.00 - 0.20 K/[facility] LAB HEMETOLOGY METHOD 02/10/2025 5:05 PM EDT [facility] Immature Granulocytes Absolute 0.17(H) 0.00 - 0.03 K/[facility] LAB HEMETOLOGY METHOD 02/10/2025 5:05 PM EDT [facility] Blood Venous blood specimen / Unknown Venipuncture / Unknown 02/10/2025 2:02 PM EDT 02/10/2025 2:02 PM EDT us Salma Naik MD LAB BLOOD ORDERABLES Final Resul t Performing Organization Address City/[facility]/ZIP Co de Phone Number [facility] [address] [place] [address], [place] [phone] * (ABNORMAL) Hemoglobin A1c (02/10/2025 2:02 PM EDT) Hemoglobin A1C 6.8(H) <6.5 % LAB CHEMISTRY METHOD 02/10/2025 9:29 PM EDT [facility] Mean Bld Glu Estim. 148 mg/dL LAB CHEMISTRY METHOD 02/10/2025 9:29 PM EDT [facility] Blood Venous blood specimen / Unknown Venipuncture / Unknown 02/10/2025 2:02 PM EDT 02/10/2025 2:02 PM EDT us Salma Naik MD LAB BLOOD ORDERABLES Final Resul t Performing Organization Address City/[facility]/ZIP Co de Phone Number [facility] [address] [place] [address], [place] [phone] * (ABNORMAL) Basic metabolic panel (02/10/2025 2:02 PM EDT) Sodium 136 133 - 145 mmol/L LAB CHEMISTRY METHOD 02/10/2025 5:18 PM [facility] Potassium 5.0 3.5 - 5.5 mmol/L LAB CHEMISTRY METHOD 02/10/2025 5:18 PM [facility] Chloride 101 96 - 110 mmol/L LAB CHEMISTRY METHOD 02/10/2025 5:18 PM [facility] CO2 30 21 - 32 mmol/L LAB CHEMISTRY METHOD 02/10/2025 5:18 PM [facility] Anion Gap 5 3 - 11 LAB CHEMISTRY METHOD 02/10/2025 5:18 PM [facility] Glucose 244(H) 70 - 100 mg/dL LAB CHEMISTRY METHOD 02/10/2025 5:18 PM [facility] BUN 11 5 - 25 mg/dL LAB CHEMISTRY METHOD 02/10/2025 5:18 PM [facility] Creatinine 0.49(L) 0.50 - 1.10 mg/dL LAB CHEMISTRY METHOD 02/10/2025 5:18 PM [facility] eGFR 108 >=60 mL/min/1. 73m2 LAB CHEMISTRY METHOD 02/10/2025 5:18 PM [facility] Comment:Calculation based on the Chronic Kidney Disease Epidemiology Collaboration (CKD-EPI) equation refit without adjustment for race. BUN/Creatinine Ratio 22.4 LAB CHEMISTRY METHOD 02/10/2025 5:18 PM [facility] Calcium 9.4 8.5 - 10.5 mg/dL LAB CHEMISTRY METHOD 02/10/2025 5:18 PM [facility] Blood Venous blood specimen / Unknown Venipuncture / Unknown 02/10/2025 2:02 PM EDT 02/10/2025 2:02 PM EDT us Salma Naik MD LAB BLOOD ORDERABLES Final Resul t [facility] [address] [place] [address], * (ABNORMAL) Lipid panel (01/14/2024) Pathologist [facility] LDL/HDL Ratio 5(A) 0 - 4 Triglycerides 206(A) 0 - 150 mg/dL Cholesterol 189 0 - 200 mg/dL HDL 42 >=40 mg/dL LDL Cholesterol 106(A) 0 - 100 mg/dL Blood Venous blood specimen / Unknown [facility] Provider LAB BLOOD ORDERABLES Lisha l Result * Depression Screening (01/01/2024) Pathologist [facility] Depression Screening abstracted [facility] Provider HEALTH MAINTENANCE Final Result * Urine Albumin Creatinine Ratio (02/17/2023) [facility] Urine Albumin Creatinine Ratio abstracted [facility] Provider HEALTH MAINTENANCE Final Result * Pap Smear (08/29/2022) [facility] Pap smear no interpretation , abstracted [facility] Provider HEALTH MAINTENANCE Final Result from Last 3 Months or Most Recently Relevant to Health Maintenance Additional Health Concerns Infection Onset Date Last Indicated ESBL 01/04/2025 01/18/2025 Insurance MEDICARE [place]ICA[place] - [place] Advance Directives Documents on File Type Date Recorded Patient Roller Varnisher [facility] Health Care Decision (hx) 08/14/2021 RO MACKEY DIRECTIVE Care Teams Refrigeration Service Inspector Relationship Specialty Start Date End Date Salma Naik MD [address] [place] [phone] PCP - General Internal Medicine 12/02/22
--- OUTSIDE RECORDS SUMMARY | 2025-05-09 18:27 | XMS_ITS | Encounter Summary ---
Author Organization [facility] Address [address] [place] [address] Care Team Providers Care Muck Farmer Name Role Phone Salma aNik MD Primary Care Provider [phone] Encounter Details Date Type Department Care Team (Late Contact Info) Description 01/02/2025 Lab Requisition [facility] - Main Lab [address] [facility] [place] [address] Manny Sanchez MD [address] [place] [address] Essential (primary) hypertension; Hyperlipidemia, unspecified; Hypothyroidism, unspecified Social History Tobacco Use Types Packs/Day Years [...] 1:00 PM EDT Office Visit Adult Medicine [address] [phone] Salma Naik MD [address] [place] [address] 07/05/2025 1:15 PM EST Office Visit Orthopedic Surgery - [place] [address] 175 [facility] 250 [place] [phone] Bossman Higginbotham DPM 175 [facility] 250 [place] [phone] 07/06/2025 8:30 AM EST Office Visit Adult Medicine [facility] [address] [place] [address] Tyler Edwards PA 444 [place] [address] 09/29/2025 2:00 PM EST Office Visit Pulmonology - [place] 175 [facility] 200 [place] [phone] Loly Duggan MD 175 [facility] 200 [place] [address] documented as of this encounter Procedures Procedure Name Priority Date/Time Associated Diagnosis Comments COMPLETE BLOOD COUNT STAT 01/02/2025 10:56 AM EDT Essential (primary) hypertension Hyperlipidemia, unspecified Hypothyroidism, unspecified COMPREHENSIVE METABOLIC PANEL STAT 01/02/2025 10:56 AM EDT Essential (primary) hypertension Hyperlipidemia, unspecified Hypothyroidism, unspecified documented in this encounter Results * (ABNORMAL) Comprehensive metabolic panel (01/02/2025 10:56 AM EDT) Sodium 127(L) 133 - 145 mmol/L LAB CHEMISTRY METHOD 01/02/2025 12:46 PM T [facility] Potassium 4.5 3.5 - 5.5 mmol/L LAB CHEMISTRY METHOD 01/02/2025 12:[address] [facility] Chloride 95(L) 96 - 110 mmol/L LAB CHEMISTRY METHOD 01/02/2025 12:[address] [facility] CO2 19(L) 21 - 32 mmol/L LAB CHEMISTRY METHOD 01/02/2025 12:[address] [facility] Anion Gap 13(H) 3 - 11 LAB CHEMISTRY METHOD 01/02/2025 12:[address] [facility] Glucose 227(H) 70 - 100 mg/dL LAB CHEMISTRY METHOD 01/02/2025 12:[address] [facility] BUN 28(H) 5 - 25 mg/dL LAB CHEMISTRY METHOD 01/02/2025 12:[address] [facility] Creatinine 0.82 0.50 - 1.10 mg/dL LAB CHEMISTRY METHOD 01/02/2025 12:[address] [facility] eGFR 82 >=60 mL/min/1. 73m2 LAB CHEMISTRY METHOD 01/02/2025 12:[address] [facility] Comment:Calculation based on the Chronic Kidney Disease Epidemiology Collaboration (CKD-EPI) equation refit without adjustment for race. BUN/Creatinine Ratio 34.1 LAB CHEMISTRY METHOD 01/02/2025 12:[address] [facility] Calcium 9.6 8.5 - 10.5 mg/dL LAB CHEMISTRY METHOD 01/02/2025 12:[address] [facility] AST (SGOT) 12 10 - 42 unit/L LAB CHEMISTRY METHOD 01/02/2025 12:[address] [facility] ALT (SGPT) 18 10 - 60 unit/L LAB CHEMISTRY METHOD 01/02/2025 12:[address] [facility] Alkaline Phosphatase 94 42 - 121 unit/L LAB CHEMISTRY METHOD 01/02/2025 12:[address] [facility] Total Protein 6.3 6.0 - 8.0 g/dL LAB CHEMISTRY METHOD 01/02/2025 12:[address] [facility] Albumin 2.8(L) 3.2 - 5.0 g/dL LAB CHEMISTRY METHOD 01/02/2025 12:[address] [facility] Total Bilirubin 0.2 0.0 - 1.4 mg/dL LAB CHEMISTRY METHOD 01/02/2025 12:46 PM EDT [facility] Blood Venous blood specimen / Unknown Venipuncture / Unknown 01/02/2025 10:56 AM EDT 01/02/2025 11:55 AM EDT us Manny Sanchez MD LAB BLOOD ORDERABLES Final Resul t [facility] [address] [place] [address], [place] [phone] * (ABNORMAL) Complete blood count (01/02/2025 10:56 AM EDT) WBC 14.1(H) 4.8 - 10.8 K/mcL LAB HEMETOLOGY METHOD 01/02/2025 12:04 PM EDT [facility] RBC 5.20(H) 3.80 - 4.80 M/mcL LAB [facility] Hemoglobin 15.6 11.5 - 16.0 g/dL LAB HEMETOLOGY METHOD 01/02/2025 12:[address] [facility] Hematocrit 47.9(H) 35.0 - 47.0 % LAB HEMETOLOGY [facility] MCV 91.4 79.0 - 98.0 FL LAB HEMETOLOGY METHOD [facility] MCH 29.8 27.0 - 32.0 pcg LAB HEMETOLOGY METHOD 01/02/2025 12:[address] [facility] MCHC 32.6 32.0 - 37.0 g/dL LAB HEMETOLOGY METHOD 01/02/2025 12:04 PM EDT [facility] RDW 14.7 11.0 - 15.0 % LAB HEMETOLOGY METHOD 01/02/2025 12:04 PM EDT [facility] Platelets 262 130 - 400 K/mcL LAB HEMETOLOGY METHOD 01/02/2025 12:04 PM EDT [facility] MPV 11.4(H) 7.0 - 11.0 FL LAB HEMETOLOGY METHOD 01/02/2025 12:04 PM EDT [facility] NRBC 0.0 <1.0 % LAB HEMETOLOGY METHOD 01/02/2025 12:04 PM EDT [facility] NRBC Absolute 0.00 <0.10 K/mcL LAB HEMETOLOGY METHOD 01/02/2025 12:04 PM EDT [facility] Blood Venous blood specimen / Unknown Venipuncture / Unknown 01/02/2025 10:56 AM EDT 01/02/2025 11:55 AM EDT us Manny Sanchez MD LAB BLOOD ORDERABLES Final Resul t [facility] 299 [place] [address], documented in this encounter Visit Diagnoses Diagnosis Essential (primary) hypertension Unspecified essential hypertension Hyperlipidemia, unspecified Hypothyroidism, unspecified documented in this encounter Additional Health Concerns Infection Onset Date Last Indicated Resolved Time ESBL 01/04/2025 01/18/2025 documented as of this encounter Care Teams Muck Farmer Relationship Specialty Start Date End Date Salma Naik MD [address] [place] [address] PCP - General Internal Medicine 12/02/22 documented as of this encounter
--- OUTSIDE RECORDS SUMMARY | 2025-05-09 18:27 | XMS_ITS | Encounter Summary ---
Author Organization [facility] Address [address] [place] [address] Care Team Providers Care Manager Environmental Services Name Role Phone Salma Naik MD Primary Care Provider [phone] Reason for Visit * Reason Onset Date Comments Fitting for DME 05/02/2025 Encounter Details Date Type Department Care Team (Late st Contact Info) Description 05/02/2025 Telephone Adult Medicine [address] [phone] Salma Naik MD [address] [place] [address] Social History Tobacco Use Types Packs/Day Years [...] Progress Notes * Geovany Santizo MA - 05/05/2025 10:02 AM EDT Signed orders hand faxed to [employer]. Orders scanned. * Aileen Jurado - 05/03/2025 3:45 PM EDT Aileen from [employer] is calling in and states she needs a Letter of Necessity faxed over please advise. * Geovany Santizo MA - 05/02/2025 12:43 PM EDT Orders for wheelchair repair received and faxed. documented in this encounter Plan of Treatment Upcoming Encounters Date Type Department Care Team (Late st Contact Info) Description 06/02/2025 1:00 PM EDT Office Visit Adult Medicine [address] [phone] Salma Naik MD [address] [place] [address] 07/05/2025 1:15 PM EST Office Visit Orthopedic Surgery - [address] [phone] Bossman Higginbotham DPM [address] [phone] 07/06/2025 8:30 AM EST Office Visit Adult Medicine [address] [phone] Tyler Edwards PA [address] [place] [address] 09/29/2025 2:00 PM EST Office Visit Pulmonology - [place] [address] [phone] Loly Duggan MD [address] [address] documented as of this encounter Visit Diagnoses Not on filedocumented in this encounter Additional Health Concerns Infection Onset Date Last Indicated Resolved Time ESBL 01/04/2025 01/18/2025 documented as of this encounter Care Teams Manager Environmental Services Relationship Specialty Start Date End Date Salma Naik MD [address] [place] [phone] PCP - General Internal Medicine 12/02/22 documented as of this encounter
--- OUTSIDE RECORDS SUMMARY | 2025-05-09 18:27 | XMS_ITS | Encounter Summary ---
Author Organization [facility] Address [address] [place] [address] Care Team Providers Care Sales Executive Name Role Phone Salma Naik MD Primary Care Provider [phone] Encounter Details Date Type Department Care Team (Late Contact Info) Description 01/05/2025 Lab Requisition [facility] - Main Lab 299 [facility] [place] [facility] [place] [address] Manny Sanchez MD [address] [place] [address] Other reduced mobility; Urinary tract infection, site not specified Social [...] 1:00 PM EDT Office Visit Adult Medicine [address] [phone] Salma Naik MD [address] [place] [phone] 07/05/2025 1:15 PM EST Office Visit Orthopedic Surgery - [place] [address] [place] [address], [place] [phone] Bossman Higginbotham DPM 175 [facility] 250 [place] [phone] 07/06/2025 8:30 AM EST Office Visit Adult Medicine [facility] 444 [place] [address] Tyler Edwards PA 444 [place] [address] 09/29/2025 2:00 PM EST Office Visit Pulmonology - [place] 175 [facility] 200 [place] [phone] Loly Duggan MD 175 [facility] 200 [place] [address] documented as of this encounter Procedures Procedure Name Priority Date/Time Associated Diagnosis Comments URINALYSIS WITH REFLEX MICROSCOPIC AND CULTURE Routine 01/04/2025 12:00 PM EDT Other reduced mobility Urinary tract infection, site not specified OLSEN URINE CULTURE TUBE Routine 01/04/2025 12:00 PM EDT Other reduced mobility Urinary tract infection, site not specified URINALYSIS WITH REFLEX MICROSCOPIC AND CULTURE Routine 01/04/2025 12:00 PM EDT Other reduced mobility Urinary tract infection, site not specified CULTURE URINE Routine 01/04/2025 12:00 PM EDT Other reduced mobility Urinary tract infection, site not specified documented in this encounter Results * (ABNORMAL) Culture urine (01/04/2025 12:00 PM EDT) Culture, Urine >100,000 CFU/mL Proteus mirabilis(A) CAROLINE 01/10/2025 8:45 AM EDT [facility] Comment: Edited result: Previously reported as Proteus species on 01/06/2025 at 0750 EDT. Culture, Urine 50,000-100,000 CFU/mL Escherichia coli ESBL(A) CAROLINE 01/10/2025 8:45 AM EDT [facility] Comment: THIS ORGANISM IS POSITIVE FOR EXTENDED SPECTRUM BETA-LACTAMASE (ESBL). EXTENDED SPECTRUM BETA-LACTAMASE PRODUCING ORGANISMS DEMONSTRATE DECREASED ACTIVITY WITH PENICILLILNS, CEPHALOSPORINS AND AZTREONAM. The organism value for this result has been updated. These results have been appended to the previously preliminary verified report. This is an edited result. Previous organism was Gram negative bacilli on 01/09/2025 at 0805 EDT. Culture, Urine 50,000-100,000 CFU/mL Pseudomonas aeruginosa(A) CAROLINE 01/10/2025 8:45 AM EDT [facility] Comment: The organism value for this result has been updated. These results have been appended to the previously preliminary verified report. This is an edited result. Previous organism was Gram negative bacilli on 01/09/2025 at 0805 EDT. Urine Indwelling urinary catheter / Unknown Non-blood Collection / Unknown 01/04/2025 12:00 PM EDT 01/05/2025 8:54 AM EDT Narrative Organism Antibiotic Method Susceptibility Proteus mirabilis Amoxicillin/Clavulanate CAROLINE 4 ug/ml: Susceptible Proteus mirabilis Ampicillin/Sulbactam CAROLINE <=2 ug/ml: Susceptible Proteus mirabilis Piperacillin/Tazobactam CAROLINE <=4 ug/ml: Susceptible Proteus mirabilis Cefazolin (Urine) CAROLINE 4 ug/ml: Susceptible Proteus mirabilis Cefoxitin CAROLINE <=4 ug/ml: Susceptible Proteus mirabilis Ceftazidime CAROLINE <=0.5 ug/ml: Susceptible Proteus mirabilis Ceftriaxone CAROLINE <=0.25 ug/ml: Susceptible Proteus mirabilis Cefepime CAROLINE <=0.12 ug/ml: Susceptible Proteus mirabilis Meropenem CAROLINE 0.5 ug/ml: Susceptible Proteus mirabilis Amikacin CAROLINE 2 ug/ml: Susceptible Proteus mirabilis Gentamicin CAROLINE <=1 ug/ml: Susceptible Proteus mirabilis Ciprofloxacin CAROLINE 2 ug/ml: Resistant Proteus mirabilis Levofloxacin CAROLINE 1 ug/ml: Intermediate Proteus mirabilis Nitrofurantoin CAROLINE 128 ug/ml: Resistant Proteus mirabilis Trimethoprim/Sulfame thoxazol e CAROLINE <=20 ug/ml: Susceptible Escherichia coli ESBL Amoxicillin/Clavulanate CAROLINE 4 ug/ml: Susceptible Escherichia coli ESBL Ampicillin/Sulbactam CAROLINE 4 ug/ml: Susceptible Escherichia coli ESBL Piperacillin/Tazobactam CAROLINE <=4 ug/ml: Susceptible Escherichia coli ESBL Cefazolin (Urine) CAROLINE >=32 ug/ml: Resistant Escherichia coli ESBL Cefoxitin CAROLINE <=4 ug/ml: Susceptible Escherichia coli ESBL Ceftazidime CAROLINE >=32 ug/ml: Resistant Escherichia coli ESBL Ceftriaxone CAROLINE >=64 ug/ml: Resistant Escherichia coli ESBL Cefepime CAROLINE 16 ug/ml: Resistant Escherichia coli ESBL Meropenem CAROLINE <=0.25 ug/ml: Susceptible Escherichia coli ESBL Amikacin CAROLINE 2 ug/ml: Susceptible Escherichia coli ESBL Gentamicin CAROLINE <=1 ug/ml: Susceptible Escherichia coli ESBL Ciprofloxacin CAROLINE >=4 ug/ml: Resistant Escherichia coli ESBL Levofloxacin CAROLINE >=8 ug/ml: Resistant Escherichia coli ESBL Nitrofurantoin CAROLINE <=16 ug/ml: Susceptible Escherichia coli ESBL Trimethoprim/Sulfa methoxazol e CAROLINE >=320 ug/ml: Resistant Pseudomonas aeruginosa Piperacillin/Tazobactam CAROLINE <=4 ug/ml: Susceptible Pseudomonas aeruginosa Ceftazidime CAROLINE 2 ug/ml: Susceptible Pseudomonas aeruginosa Cefepime CAROLINE 2 ug/ml: Susceptible Pseudomonas aeruginosa Meropenem CAROLINE 0.5 ug/ml: Susceptible Pseudomonas aeruginosa Amikacin CAROLINE 4 ug/ml: Susceptible Pseudomonas aeruginosa Ciprofloxacin CAROLINE 0.25 ug/ml: Susceptible Pseudomonas aeruginosa Levofloxacin CAROLINE 0.5 ug/ml: Susceptible us Manny Sanchez MD LAB MICROBIOLOGY - GENERAL ORDER CEZAR Final Result [facility] [address] [place] [address], * (ABNORMAL) Urinalysis with reflex microscopic and culture (01/04/2025 12:00 PM EDT) Specific Guin Urine 1.013 1.003 - 1.030 LAB URINALYSIS - AUTOMATED METHOD 01/05/2025 8:54 AM [facility] pH, Urine 7.5 5.0 - 8.0 pH LAB URINALYSIS - AUTOMATED METHOD 01/05/2025 8:54 AM [facility] Leukocytes, Urine Moderate(A) Negative LAB URINALYSIS - AUTOMATED METHOD 01/05/2025 8:54 AM [facility] Nitrite, Urine Positive(A) Negative LAB URINALYSIS - AUTOMATED METHOD 01/05/2025 8:54 AM [facility] Protein, Urine 100(A) <=Trace mg/dL LAB URINALYSIS - AUTOMATED METHOD 01/05/2025 8:54 AM [facility] Glucose, Urine Negative Negative mg/dL LAB URINALYSIS - AUTOMATED METHOD 01/05/2025 8:54 AM [facility] Ketones, Urine Negative Negative mg/dL LAB URINALYSIS - AUTOMATED METHOD 01/05/2025 8:54 AM [facility] Urobilinogen , Urine 1.0 0.2 - 1.0 mg/dL LAB URINALYSIS - AUTOMATED METHOD 01/05/2025 8:54 AM [facility] Bilirubin, Urine Negative Negative LAB URINALYSIS - AUTOMATED METHOD 01/05/2025 8:54 AM [facility] Blood, Urine Moderate(A) Negative LAB URINALYSIS - AUTOMATED METHOD 01/05/2025 8:54 AM [facility] RBC, Urine 7.0(H) 0 - 4 /HPF LAB URINALYSIS - AUTOMATED METHOD 01/05/2025 8:54 AM [facility] WBC, Urine 60.4(H) 0 - 4 /HPF LAB URINALYSIS - AUTOMATED METHOD 01/05/2025 8:54 AM [facility] Squamous Epithelial, Urine 10 0 - 60 /LPF LAB URINALYSIS - AUTOMATED METHOD 01/05/2025 8:54 AM EDT [facility] Bacteria, Urine Many(A) Negative /HPF LAB URINALYSIS - AUTOMATED METHOD 01/05/2025 8:54 AM EDT [facility] Hyaline Casts, Urine 1.2 0 - 3 /LPF LAB URINALYSIS - AUTOMATED METHOD 01/05/2025 8:54 AM EDT [facility] Urine Indwelling urinary catheter / Unknown Non-blood Collection / Unknown 01/04/2025 12:00 PM EDT 01/05/2025 8:25 AM EDT us Manny Sanchez MD LAB URINE ORDERABLES Final Resul t Performing Organization Address [facility] [[email or web address]] Co de Phone Number [facility] [address] [place] [address], [place] [phone] * Olsen urine culture tube (01/04/2025 12:00 PM EDT) Extra Tube Hold for add-ons. 01/05/2025 10:02 AM EDT [facility] Comment:Auto resulted. Urine Indwelling urinary catheter / Unknown Non-blood Collection / Unknown 01/04/2025 12:00 PM EDT 01/05/2025 8:25 AM EDT us Manny Sanchez MD LAB URINE ORDERABLES Final Resul t Performing Organization Address [facility]/ZIP Co de Phone Number [facility] [address] [place] [address], [place] [phone] documented in this encounter Visit Diagnoses Diagnosis Other reduced mobility Urinary tract infection, site not specified documented in this encounter Additional Health Concerns Infection Onset Date Last Indicated Resolved Time ESBL 01/04/2025 01/18/2025 documented as of this encounter Care Teams Sales Executive Relationship Specialty Start Date End Date Salma Naik MD [address] [place] [address] PCP - General Internal Medicine 12/02/22 documented as of this encounter
--- OUTSIDE RECORDS SUMMARY | 2025-05-09 18:27 | XMS_ITS | Encounter Summary ---
Author Organization [facility] Address [address] [place] [address] Care Team Providers Care Senior Integration Architect Name Role Phone Salma Naik MD Primary Care Provider [phone] Encounter Details Date Type Department Care Team (Late Contact Info) Description 01/05/2025 Lab Requisition [facility] - Main Lab 299 [facility] [place] [address] Manny Sanchez MD [address] [place] [address] Essential (primary) hypertension Social History Tobacco Use [...] 1:00 PM EDT Office Visit Adult Medicine [address] [phone] Salma Naik MD [address] [place] [phone] 07/05/2025 1:15 PM EST Office Visit Orthopedic Surgery - [place] [address] 175 [facility] 250 [place] [phone] Bossman Higginbotham, BERE 175 [facility] 250 [place] [phone] 07/06/2025 8:30 AM EST Office Visit Adult Medicine [facility] [place] [address] [place] [address] Tyler Edwards PA 444 [place] [address] 09/29/2025 2:00 PM EST Office Visit Pulmonology - [place] 175 [facility] 200 [place] [phone] Loly Duggan MD 175 [facility] 200 [place] [address] documented as of this encounter Procedures Procedure Name Priority Date/Time Associated Diagnosis Comments CBC WITH AUTO DIFFERENTIAL Routine 01/06/2025 5:52 AM EDT Essential (primary) hypertension CBC AND DIFFERENTIAL Routine 01/06/2025 5:52 AM EDT Essential (primary) hypertension MAGNESIUM Routine 01/06/2025 5:52 AM EDT Essential (primary) hypertension COMPREHENSIVE METABOLIC PANEL Routine 01/06/2025 5:52 AM EDT Essential (primary) hypertension documented in this encounter Results * (ABNORMAL) Comprehensive metabolic panel (01/06/2025 5:52 AM EDT) Sodium 144 133 - 145 mmol/L LAB CHEMISTRY METHOD 01/06/2025 9:01 AM EDT [facility] Potassium 4.2 3.5 - 5.5 mmol/L LAB CHEMISTRY METHOD 01/06/2025 9:01 AM EDT [facility] Chloride 108 96 - 110 mmol/L LAB CHEMISTRY METHOD 01/06/2025 9:01 AM [facility] CO2 29 21 - 32 mmol/L LAB CHEMISTRY METHOD 01/06/2025 9:01 AM [facility] Anion Gap 7 3 - 11 LAB CHEMISTRY METHOD 01/06/2025 9:01 AM [facility] Glucose 91 70 - 100 mg/dL LAB CHEMISTRY METHOD 01/06/2025 9:01 AM [facility] BUN 8 5 - 25 mg/dL LAB CHEMISTRY METHOD 01/06/2025 9:01 AM [facility] Creatinine 0.43(L) 0.50 - 1.10 mg/dL LAB CHEMISTRY METHOD 01/06/2025 9:01 AM [facility] eGFR 112 >=60 mL/min/1. 73m2 LAB CHEMISTRY METHOD 01/06/2025 9:01 AM [facility] Comment:Calculation based on the Chronic Kidney Disease Epidemiology Collaboration (CKD-EPI) equation refit without adjustment for race. BUN/Creatinine Ratio 18.6 LAB CHEMISTRY METHOD 01/06/2025 9:01 AM [facility] Calcium 8.5 8.5 - 10.5 mg/dL LAB CHEMISTRY METHOD 01/06/2025 9:01 AM [facility] AST (SGOT) 10 10 - 42 unit/L LAB CHEMISTRY METHOD 01/06/2025 9:01 AM [facility] ALT (SGPT) 14 10 - 60 unit/L LAB CHEMISTRY METHOD 01/06/2025 9:01 AM [facility] Alkaline Phosphatase 80 42 - 121 unit/L LAB CHEMISTRY METHOD 01/06/2025 9:01 AM [facility] Total Protein 5.0(L) 6.0 - 8.0 g/dL LAB CHEMISTRY METHOD 01/06/2025 9:01 AM [facility] Albumin 2.2(L) 3.2 - 5.0 g/dL LAB CHEMISTRY METHOD 01/06/2025 9:01 AM EDT [facility] Total Bilirubin 0.2 0.0 - 1.4 mg/dL LAB CHEMISTRY METHOD 01/06/2025 9:01 AM EDT [facility] Blood Venous blood specimen / Unknown Venipuncture / Unknown 01/06/2025 5:52 AM EDT 01/06/2025 7:53 AM EDT us Manny Sanchez MD LAB BLOOD ORDERABLES Final Resul t Performing Organization Address City/[facility]/ZIP Co de Phone Number [facility] [address] [place] [address], [place] [phone] * (ABNORMAL) Magnesium (01/06/2025 5:52 AM EDT) Magnesium 1.6(L) 1.9 - 2.6 mg/dL LAB CHEMISTRY METHOD 01/06/2025 8:55 AM EDT [facility] Blood Venous blood specimen / Unknown Venipuncture / Unknown 01/06/2025 5:52 AM EDT 01/06/2025 7:53 AM EDT us Manny Sanchez MD LAB BLOOD ORDERABLES Final Resul t Performing Organization Address City/[facility]/ZIP Co de Phone Number [facility] [address] [place] [address], [place] [phone] * (ABNORMAL) CBC auto differential (01/06/2025 5:52 AM EDT) WBC 9.7 4.8 - 10.8 K/[facility] LAB HEMETOLOGY METHOD 01/06/2025 8:09 AM EDT [facility] RBC 4.20 3.80 - 4.80 M/[facility] LAB HEMETOLOGY METHOD 01/06/2025 8:09 AM EDT [facility] Hemoglobin 12.3 11.5 - 16.0 g/dL LAB HEMETOLOGY METHOD 01/06/2025 8:09 AM [facility] Hematocrit 39.0 35.0 - 47.0 % LAB HEMETOLOGY METHOD 01/06/2025 8:09 AM [facility] MCV 93.8 79.0 - 98.0 FL LAB HEMETOLOGY METHOD 01/06/2025 8:09 AM [facility] MCH 29.6 27.0 - 32.0 pcg LAB HEMETOLOGY METHOD 01/06/2025 8:09 AM [facility] MCHC 31.5(L) 32.0 - 37.0 g/dL LAB HEMETOLOGY METHOD 01/06/2025 8:09 AM [facility] RDW 14.7 11.0 - 15.0 % LAB HEMETOLOGY METHOD 01/06/2025 8:09 AM [facility] Platelets 236 130 - 400 K/mcL LAB HEMETOLOGY METHOD 01/06/2025 8:09 AM [facility] MPV 11.3(H) 7.0 - 11.0 FL LAB HEMETOLOGY METHOD 01/06/2025 8:09 AM [facility] NRBC 0.0 <1.0 % LAB HEMETOLOGY METHOD 01/06/2025 8:09 AM [facility] NRBC Absolute 0.00 <0.10 K/mcL LAB HEMETOLOGY METHOD 01/06/2025 8:09 AM [facility] Neutrophils Relative 57.1 % LAB HEMETOLOGY METHOD 01/06/2025 8:09 AM [facility] Lymphocytes Relative 32.0 % LAB HEMETOLOGY METHOD 01/06/2025 8:09 AM [facility] Monocytes Relative 6.2 % LAB HEMETOLOGY METHOD 01/06/2025 8:09 AM EDT [facility] Eosinophils Relative 2.6 % LAB HEMETOLOGY METHOD 01/06/2025 8:09 AM T [facility] Basophils Relative 0.9 % LAB HEMETOLOGY METHOD 01/06/2025 8:09 AM [facility] Immature Granulocytes Relative 1.2 % LAB HEMETOLOGY METHOD 01/06/2025 8:[facility] Neutrophils Absolute 5.56 1.50 - 7.00 K/mcL LAB HEMETOLOGY METHOD 01/06/2025 8:09 AM [facility] Lymphocytes Absolute 3.11 1.00 - 5.00 K/mcL LAB HEMETOLOGY METHOD 01/06/2025 8:09 AM [facility] Monocytes Absolute 0.60 0.20 - 1.00 K/mcL LAB HEMETOLOGY METHOD 01/06/2025 8:09 AM T [facility] Eosinophils Absolute 0.25 0.00 - 0.50 K/mcL LAB HEMETOLOGY METHOD 01/06/2025 8:09 AM [facility] Basophils Absolute 0.09 0.00 - 0.20 K/mcL LAB HEMETOLOGY METHOD 01/06/2025 8:09 AM [facility] Immature Granulocytes Absolute 0.12(H) 0.00 - 0.03 K/mcL LAB HEMETOLOGY METHOD 01/06/2025 8:09 AM [facility] Blood Venous blood specimen / Unknown Venipuncture / Unknown 01/06/2025 5:52 AM EDT 01/06/2025 7:53 AM EDT us Manny Sanchez MD LAB BLOOD ORDERABLES Final Resul t [facility] [address] [place], [place] [address] [phone] documented in this encounter Visit Diagnoses Diagnosis Essential (primary) hypertension Unspecified essential hypertension documented in this encounter Additional Health Concerns Infection Onset Date Last Indicated Resolved Time ESBL 01/04/2025 01/18/2025 documented as of this encounter Care Teams Senior Integration Architect Relationship Specialty Start Date End Date Salma Naik MD [address] [place] [phone] PCP - General Internal Medicine 12/02/22 documented as of this encounter
--- OUTSIDE RECORDS SUMMARY | 2025-05-09 18:27 | XMS_ITS | Encounter Summary ---
Author Organization [facility] Address [address] [place] [address] Care Team Providers Care Dot Compliance Coordinator Name Role Phone Salma Naik MD Primary Care Provider [phone] Encounter Details Date Type Department Care Team (Late Contact Info) Description 01/19/[address] [facility] - Main Lab 299 [facility] [place] [address] Manny Sanchez MD [address] [place] [address] Essential (primary) hypertension Social History Tobacco Use [...] 1:00 PM EDT Office Visit Adult Medicine [address] [phone] Salma Naik MD [address] [place] [address] 07/05/2025 1:15 PM EST Office Visit Orthopedic Surgery - [place] 250 175 [facility] 250 [place] [address] Bossman Higginbotham, DPM 175 [facility] 250 [place] [address] 07/06/2025 8:30 AM EST Office Visit Adult Medicine [facility] [place] 444 [place], [place] [phone] Tyler Edwards PA 444 [place], [place] 09/29/2025 2:00 PM EST Office Visit Pulmonology - [place] 175 [facility] 200 [place] [phone] Loly Duggan MD [address] [address] documented as of this encounter Visit Diagnoses Diagnosis Essential (primary) hypertension Unspecified essential hypertension documented in this encounter Additional Health Concerns Infection Onset Date Last Indicated Resolved Time ESBL 01/04/2025 01/18/2025 documented as of this encounter Care Teams Dot Compliance Coordinator Relationship Specialty Start Date End Date Salma Naik MD [address] [place] [address] PCP - General Internal Medicine 12/02/22 documented as of this encounter
--- OUTSIDE RECORDS SUMMARY | 2025-05-09 18:27 | XMS_ITS | Encounter Summary ---
Author Organization [facility] Address [address] [place] [address] Care Team Providers Care Surgical Services Manager Name Role Phone Salma Naik MD Primary Care Provider [phone] Encounter Details Date Type Department Care Team (Late Contact Info) Description 01/06/2025 Lab Requisition [facility] - Main Lab 299 [facility] [place] [address] Manny Sanchez MD [address] [place] [address] Type 2 diabetes mellitus without complications (CMS/HCC V24, CMS/HCC V28) Social History Tobacco [...] 1:00 PM EDT Office Visit Adult Medicine [address] [phone] Salma Naik MD [address] [place] [address] 07/05/2025 1:15 PM EST Office Visit Orthopedic Surgery - [place] 250 175 [facility] 250 [place] [phone] Bossman Higginbotham DPM 175 [facility] 250 [place] [phone] 07/06/2025 8:30 AM EST Office Visit Adult Medicine [facility] [place] 444 [place] [address] Tyler Edwards PA 444 [place] [address] 09/29/2025 2:00 PM EST Office Visit Pulmonology - [place] 175 [facility] 200 [place] [phone] Loly Duggan MD 175 [facility] 200 [place] [address] documented as of this encounter Procedures Procedure Name Priority Date/Time Associated Diagnosis Comments SODIUM, URINE, RANDOM Routine 01/05/2025 4:46 PM EDT Type 2 diabetes mellitus without complications ([facility] V24, [facility] V28) OSMOLALITY, URINE Routine 01/05/2025 4:4 6 PM EDT Type 2 diabetes mellitus without complications ([facility] V24, [facility] V28) documented in this encounter Results * Osmolality, urine (01/05/2025 4:46 PM EDT) Osmolality, Urine 326 300 - 1,300 mOsm/kg LAB CHEMISTRY METHOD 01/06/2025 10:51 AM EDT [facility] Urine Indwelling urinary catheter / Unknown 01/05/2025 4:46 PM EDT 01/06/2025 7:26 AM EDT us Manny Sanchez MD LAB URINE ORDERABLES Final Resul t [facility] [address] [place] [address], [place] [phone] * Sodium, urine, random (01/05/2025 4:46 PM EDT) Sodium, Ur 31 mmol/L LAB CHEMISTRY METHOD 01/06/2025 9:21 AM EDT [facility] Urine Indwelling urinary catheter / Unknown 01/05/2025 4:46 PM EDT 01/06/2025 7:26 AM EDT us Manny Sanchez MD LAB URINE ORDERABLES Final Resul t Performing Organization Address [facility] de Phone Number [facility] [address] [place] [address], [place] [phone] documented in this encounter Visit Diagnoses Diagnosis Type 2 diabetes mellitus without complications (CMS/HCC V24, CMS/HCC V28) documented in this encounter Additional Health Concerns Infection Onset Date Last Indicated Resolved Time ESBL 01/04/2025 01/18/2025 documented as of this encounter Care Teams Surgical Services Manager Relationship Specialty Start Date End Date Salma Naik MD [address] [place] [phone] PCP - General Internal Medicine 12/02/22 documented as of this encounter
== END 2025-05-09 16:13 | disposition home or self-care (01) ==
LOC: HO.HSM 15:14
PROVIDERS: PCP Internal Medicine; Visit Provider Psychiatry & Neurology Neurology
DX: G24.01 Drug induced subacute dyskinesia (principal)
CPT/HCPCS: 99213

== ENCOUNTER → 2025-05-09 15:14 | Outpatient (BNVA) | payer MEDICARE, MEDICAID, SELFPAY | PROVIDERS: PCP Internal Medicine; Visit Provider Psychiatry & Neurology Neurology | DX: G24.01 Drug induced subacute dyskinesia (principal); F20.9 Schizophrenia, unspecified | CPT/HCPCS: 99212 ==